=== PATIENT | female | born 1965 | race Caucasian/White ===

== ENCOUNTER 2020-05-20 20:06 | Inpatient (IN) | payer MEDICAID ==
[~2020-05-20] VITALS: Ht 142.2 cm; Wt 70.0 kg
[~2020-05-20 20:06] MED LIST: CIPR7.5D3 EACH EAR
[2020-05-20] MEDS ORDERED: normal saline 1000ML IV soln IVB ONE (20:55)
[2020-05-20] MEDS ORDERED: magnesium 2GM in 50ml NS 50 ML IV ONE (20:55)
[2020-05-20] MEDS ORDERED: CefTRIAXone 2gm/D5W 50ml 50 ML IV ONE (20:55)
[2020-05-20] MEDS ORDERED: azithromycin/NS 500mg/250ml 250 ML IV ONE (21:00)
[2020-05-20 21:14] LABS: BASOPHILS # (AUTO) 0.1 X10'3 (0-0.2); BASOPHILS % (AUTO) 0.5 % (0-1); EOSINOPHILS % (AUTO) 0.1 % (0-6); HEMATOCRIT 39.8 % (35.0-45.0); LYMPHOCYTES # (AUTO) 1.5 X10'3 (1.1-4.8); MEAN CORPUSCULAR HEMOGLOBIN 29.1 PG (27.0-31.0); MEAN CORPUSCULAR HGB CONC 32.6 g/dL (33.0-36.5); MEAN CORPUSCULAR VOLUME 89.3 FL (78-98); MEAN PLATELET VOLUME 7.2 FL (7.4-10.4); MONOCYTES # (AUTO) 0.6 X10'3 (0-0.9); MONOCYTES % (AUTO) 5.3 % (2-12); NEUTROPHILS # (AUTO) 9.1 X10'3 (1.8-7.7); NEUTROPHILS % (AUTO) 81.1 % (42-75); PLATELET COUNT 404 X10'3 (140-440); RED BLOOD COUNT 4.46 X10'6 (4.20-5.60); RED CELL DISTRIBUTION WIDTH 14.6 % (11.5-14.5); WHITE BLOOD COUNT 11.3 X10'3 (4.5-11.0)
[2020-05-20 21:24] LABS: PARTIAL THROMBOPLASTIN TIME 25 SECONDS (22-32)
[2020-05-20 21:28] LABS: ALANINE AMINOTRANSFERASE 28 U/L (12-78); ALBUMIN 3.8 G/DL (3.4-5.0); ALBUMIN/GLOBULIN RATIO 1.1 (1.1-1.5); ALKALINE PHOSPHATASE 91 IU/L (46-116); ANION GAP 8 (8-16); ASPARTATE AMINO TRANSFERASE 16 U/L (10-37); BILIRUBIN,TOTAL 0.4 MG/DL (0.1-1.0); BLOOD UREA NITROGEN 13 MG/DL (7-18); BUN/CREATININE RATIO 10.2 (6.6-38.0); CALCIUM 8.6 MG/DL (8.5-10.1); CHLORIDE 103 MMOL/L (99-107); CREATININE 1.27 MG/DL (0.40-0.90); GLUCOSE 106 MG/DL (70-104); POTASSIUM 3.7 MMOL/L (3.5-5.1); SODIUM 138 MMOL/L (135-145); TOTAL CARBON DIOXIDE 27.4 MMOL/L (24-32); TOTAL PROTEIN 7.4 G/DL (6.4-8.2); eGFR 44 ML/MIN
[2020-05-20] MEDS ORDERED: ipratropium/albuterol 3ml nebule NEB ONE ×2 (21:40→23:25)
--- NOTE | 2020-05-20 22:07 | NUR ---
checked iv compatability on clinical pharm. mag sulfate and zithromax compatible.
[2020-05-20] MEDS ORDERED: LORazepam 2 mg/ml vial IV ONE (23:10)
[2020-05-20] MEDS ORDERED: metoprolol tartrate 50mg tablet PO ONE ×2 (23:40→23:55)
[2020-05-20] MEDS ORDERED: metoprolol tartrate 25mg tablet PO ONE ×2 (23:45→23:50)
--- NOTE | 2020-05-20 23:52 | NUR ---
pt tried to void for UA she is unable. Pt refused strit cath Rylee DRAPER aware
--- NOTE | 2020-05-21 00:21 | NUR ---
Pt was administered ativan as ordered. Pt is not answering questions appropriately at this time.
[2020-05-21] MEDS ORDERED: potassium CL 10mEq/100ml bag 100 ML IV PRN ×2 (01:40)
[2020-05-21] MEDS ORDERED: potassium Cl 20 mEq SR tablet PO PRN ×2 (01:40)
[2020-05-21] MEDS ORDERED: magnesium 2GM in 50ml NS 50 ML IV PRN (01:40)
[2020-05-21] MEDS ORDERED: acetaminophen 325mg tablet PO PRN (01:40)
[2020-05-21] MEDS ORDERED: magnesium Cl slow-release 64mg tablet PO PRN (01:40)
[2020-05-21] MEDS ORDERED: ondansetron/PF 4mg/2ml inj IV PRN (01:40)
[2020-05-21] MEDS ORDERED: magnesium 4gm in 100ml NS 100 ML IV PRN (01:40)
[2020-05-21] MEDS: normal saline 1000ml 1,000 ML IV SCH ×2 (02:05→08:55)
[2020-05-21] MEDS: levalbuterol 1.25mg/0.5ml nebule IH SCH ×4 (03:08→20:44)
[2020-05-21 03:10] LABS: ABG BASE EXCESS -1.1 mmol/L (-2.0-2.0); ABG HCO3 22.6 mmol/L (22.0-26.0); ABG OXYGEN SATURATION 94.9 % (94-97); ABG PCO2 (T) 35.6 mmHg (32.0-45.0); ABG PO2 (T) 78.5 mmHg (75.0-100.0); ALLEN'S TEST Yes; FCOHb 0.2 % (0.0-3.9); FMetHb 0.1 % (0.0-1.5); FO2Hb 94.6 % (94-97); PATIENT TEMPERATURE 37.7; TOTAL HEMOGLOBIN 12.3 G/dl (12.0-16.0)
--- NOTE | 2020-05-21 07:41 | NUR ---
Patient in room ED 1. I have received report from Travis from ER and had the opportunity to ask questions and assume patient care.
[2020-05-21] MEDS ORDERED: levoFLOXACIN-Levaquin 500mg/D5 100 ML IV SCH (08:00)
[2020-05-21 08:32] VITALS: BP 106/63
[2020-05-21] MEDS: K and/or MAG REPLACEMENT MC SCH ×2 (08:39→20:00)
[2020-05-21] MEDS: heparin, porcine 5000 units/ml vial SQ SCH ×2 (08:55→20:35)
[2020-05-21] MEDS: methylPREDNISolone sod succ/PF 40mg inj. IV SCH ×2 (08:55→20:34)
[2020-05-21 10:00] VITALS: BP 121/57
[2020-05-21 10:13] VITALS: BP 92/57
[2020-05-21] MEDS: benzonatate 100mg capsule PO PRN ×2 (12:24→20:35)
[2020-05-21 17:00] VITALS: BP 107/66
--- NOTE | 2020-05-21 18:30 | NUR ---
Patient in room ORTHO 4020. I have received report from ERIC DIAZ and had the opportunity to ask questions and assume patient care. Addendum: 05/21/20 at 1859 by Sera Tafoya RN Amended: Links added.
--- NOTE | 2020-05-21 18:32 | NUR ---
Problems reprioritized. Patient report given, questions answered & plan of care reviewed with
--- NOTE | 2020-05-21 21:00 | NUR ---
INC OF URINE SKIN CARE DONE COMPLET BED CHANGE DONE.
[2020-05-21 22:00] VITALS: BP 103/70
--- NOTE | 2020-05-21 23:07 | NUR ---
C/O BEING COLD WARM BLANKET GIVEN NO CHANGES AT THIS TIME.
--- NOTE | 2020-05-22 00:33 | NUR ---
pt resting without changes.
[2020-05-22] MEDS: levalbuterol 1.25mg/0.5ml nebule IH SCH ×4 (03:45→20:37)
[2020-05-22 06:00] VITALS: BP 98/60
[2020-05-22 06:28] LABS: BASOPHILS % (AUTO) 0.1 % (0-1); EOSINOPHILS % (AUTO) 0 % (0-6); HEMATOCRIT 32.6 % (35.0-45.0); HEMOGLOBIN 10.6 g/dl (12.0-16.0); LYMPHOCYTES # (AUTO) 0.5 X10'3 (1.1-4.8); LYMPHOCYTES % (AUTO) 2.4 % (21-51); MEAN CORPUSCULAR HGB CONC 32.4 g/dL (33.0-36.5); MEAN CORPUSCULAR VOLUME 89.5 FL (78-98); MEAN PLATELET VOLUME 7.3 FL (7.4-10.4); MONOCYTES # (AUTO) 0.4 X10'3 (0-0.9); MONOCYTES % (AUTO) 1.7 % (2-12); NEUTROPHILS # (AUTO) 21.1 X10'3 (1.8-7.7); NEUTROPHILS % (AUTO) 95.8 % (42-75); PLATELET COUNT 318 X10'3 (140-440); RED BLOOD COUNT 3.64 X10'6 (4.20-5.60); RED CELL DISTRIBUTION WIDTH 14.7 % (11.5-14.5)
[2020-05-22 06:32] LABS: ALBUMIN 2.7 G/DL (3.4-5.0); ANION GAP 7 (8-16); BLOOD UREA NITROGEN 16 MG/DL (7-18); CALCIUM 8.5 MG/DL (8.5-10.1); CHLORIDE 106 MMOL/L (99-107); GLUCOSE 149 MG/DL (70-104); MAGNESIUM 2.3 MG/DL (1.5-2.4); POTASSIUM 3.8 MMOL/L (3.5-5.1); SODIUM 138 MMOL/L (135-145); TOTAL CARBON DIOXIDE 25.1 MMOL/L (24-32); eGFR 58 ML/MIN
--- NOTE | 2020-05-22 06:34 | NUR ---
Problems reprioritized. Patient report given, questions answered & plan of care reviewed with ERIC DIAZ. Addendum: 05/22/20 at 0634 by Sera Tafoya RN Amended: Links added.
--- NOTE | 2020-05-22 06:42 | NUR ---
Patient in room ORTHO 4016. I have received report from EMIR and had the opportunity to ask questions and assume patient care.
[2020-05-22] MEDS: K and/or MAG REPLACEMENT MC SCH ×2 (07:09→19:03)
[2020-05-22] MEDS: benzonatate 100mg capsule PO PRN (08:11)
[2020-05-22] MEDS: heparin, porcine 5000 units/ml vial SQ SCH ×2 (08:12→19:08)
[2020-05-22] MEDS: methylPREDNISolone sod succ/PF 40mg inj. IV SCH ×2 (08:13→19:08)
[2020-05-22 10:00] VITALS: BP 125/88
[2020-05-22] MEDS: pantoprazole 40mg Tablet.DR PO SCH (12:28)
[2020-05-22] MEDS: levoFLOXACIN 250mg tablet PO SCH (12:28)
[2020-05-22] MEDS ORDERED: iohexol 350MG/ML 100ml bottle IV ONE (14:16)
[2020-05-22 18:00] VITALS: BP 133/83
--- NOTE | 2020-05-22 18:16 | NUR ---
Patient in room ORTHO 4020. I have received report from Carl DAIZ and had the opportunity to ask questions and assume patient care.
--- NOTE | 2020-05-22 18:23 | NUR ---
Problems reprioritized. Patient report given, questions answered & plan of care reviewed with Tania.
[2020-05-22] MEDS: lactobacillus rhamnosus 10,000 MMU CELLS/CAPSULE PO SCH (19:08)
--- NOTE | 2020-05-22 19:44 | NUR ---
PAGER ID: [phone] MESSAGE: Tania ext [phone] Ms Stephany in room 4020B would like something for sleep. She takes doxepin HCL 75mg 2 capsules HS at home for sleep. Can I get an order for this? Thank you
[2020-05-22] MEDS ORDERED: temazepam 15mg capsule PO ONE (19:50)
[2020-05-22 22:00] VITALS: BP 111/83
[2020-05-23] MEDS: normal saline 1000ml 1,000 ML IV SCH (01:40)
[2020-05-23] MEDS: levalbuterol 1.25mg/0.5ml nebule IH SCH ×3 (02:36→15:46)
[2020-05-23 06:32] LABS: BASOPHILS % (AUTO) 0.1 % (0-1); EOSINOPHILS % (AUTO) 0 % (0-6); HEMATOCRIT 32.6 % (35.0-45.0); HEMOGLOBIN 10.8 g/dl (12.0-16.0); LYMPHOCYTES # (AUTO) 0.7 X10'3 (1.1-4.8); LYMPHOCYTES % (AUTO) 5.2 % (21-51); MEAN CORPUSCULAR HEMOGLOBIN 29.9 PG (27.0-31.0); MEAN CORPUSCULAR HGB CONC 33.2 g/dL (33.0-36.5); MEAN CORPUSCULAR VOLUME 89.9 FL (78-98); MEAN PLATELET VOLUME 7.6 FL (7.4-10.4); MONOCYTES # (AUTO) 0.5 X10'3 (0-0.9); MONOCYTES % (AUTO) 3.7 % (2-12); NEUTROPHILS # (AUTO) 12.2 X10'3 (1.8-7.7); PLATELET COUNT 338 X10'3 (140-440); RED BLOOD COUNT 3.63 X10'6 (4.20-5.60); RED CELL DISTRIBUTION WIDTH 14.4 % (11.5-14.5); WHITE BLOOD COUNT 13.5 X10'3 (4.5-11.0)
--- NOTE | 2020-05-23 06:42 | NUR ---
Problems reprioritized. Patient report given, questions answered & plan of care reviewed with Casandra DIAZ.
[2020-05-23 06:54] LABS: ALBUMIN 2.9 G/DL (3.4-5.0); ANION GAP 13 (8-16); BLOOD UREA NITROGEN 16 MG/DL (7-18); BUN/CREATININE RATIO 16.7 (6.6-38.0); CALCIUM 8.4 MG/DL (8.5-10.1); CHLORIDE 104 MMOL/L (99-107); CREATININE 0.96 MG/DL (0.40-0.90); GLUCOSE 116 MG/DL (70-104); MAGNESIUM 2.3 MG/DL (1.5-2.4); POTASSIUM 3.8 MMOL/L (3.5-5.1); SODIUM 141 MMOL/L (135-145); TOTAL CARBON DIOXIDE 24.3 MMOL/L (24-32); eGFR 61 ML/MIN
[2020-05-23 07:42] VITALS: BP 126/88
[2020-05-23] MEDS: heparin, porcine 5000 units/ml vial SQ SCH (08:00)
[2020-05-23] MEDS: K and/or MAG REPLACEMENT MC SCH (08:00)
[2020-05-23] MEDS: pantoprazole 40mg Tablet.DR PO SCH (09:14)
[2020-05-23] MEDS: lactobacillus rhamnosus 10,000 MMU CELLS/CAPSULE PO SCH (09:14)
[2020-05-23] MEDS: methylPREDNISolone sod succ/PF 40mg inj. IV SCH (09:14)
[2020-05-23 11:00] VITALS: BP 139/81
[2020-05-23] MEDS: levoFLOXACIN 250mg tablet PO SCH (12:33)
--- NOTE | 2020-05-23 14:04 | NUR ---
PAGER ID: [phone] MESSAGE: [id number] Stephany 94% RA and ambulating 92% RA. NO Go for home O2. Casandra [phone]
--- NOTE | 2020-05-23 15:00 | NUR ---
O2 Sat at rest on room air:_94__% If below 89%: Recovery O2 Sat at rest on ___LPM:___%:___% via (mask/nasal cannula, etc..) No further documentation is necessary. If O2 Sat did not drop below 89% on room air,ambulate patient on room air. O2 Sat while ambulating on room air:___% Recovery O2 Sat while ambulating on ___LPM:___% No further documentation is necessary. If patient does not drop below 89% while ambulating, he/she does not qualify for home O2.
[2020-05-23] MEDS ORDERED: ALBU8HFA PO (16:57)
[2020-05-23] MEDS ORDERED: PRED10TA23 PO (16:57)
[2020-05-23] MEDS ORDERED: LEVO500T89 PO (16:57)
[2020-05-23 18:00] VITALS: BP 139/81
--- NOTE | 2020-05-23 18:30 | NUR ---
Patient in room ORTHO 4020. I have received report from Casandra DIAZ and had the opportunity to ask questions and assume patient care. Addendum: 05/23/20 at 2103 by Ana Cristina Tran RN Reported that patient is to be discharged this evening, all paperwork printed out, patient just needs to be informed.
--- NOTE | 2020-05-23 19:30 | NUR ---
Patient left via w/c to lobby with all her belongings to private vehicle where boyfriend awaiting. Patient informed that the prescriptions were left on a voice mail message system at [facility], and for patient to follow up tomorrow.
== END 2020-05-23 19:23 | disposition home or self-care (01) | DRG 140 ==
LOC: ER 20:06 → UNDOADMIN 05-21 00:09 → ED HOLD 05-21 00:09 → ORTHO 4S 05-21 07:53 → ED HOLD 05-21 07:53
PROVIDERS: ADMIT Internal Medicine; ATTEND Internal Medicine
PROC: B32T1ZZ Computerized Tomography (CT Scan) of Left Pulmonary Artery using Low Osmolar Contrast (ICD-10-PCS; principal; 2020-05-22)
PROC: B3201ZZ Computerized Tomography (CT Scan) of Thoracic Aorta using Low Osmolar Contrast (ICD-10-PCS; 2020-05-22)
PROC: B32S1ZZ Computerized Tomography (CT Scan) of Right Pulmonary Artery using Low Osmolar Contrast (ICD-10-PCS; 2020-05-22)
DX: J44.1 Chronic obstructive pulmonary disease with (acute) exacerbation (principal); G89.29 Other chronic pain; M54.9 Dorsalgia, unspecified; J45.901 Unspecified asthma with (acute) exacerbation; M79.7 Fibromyalgia; J96.00 Acute respiratory failure, unspecified whether with hypoxia or hypercapnia; J20.9 Acute bronchitis, unspecified; J44.0 Chronic obstructive pulmonary disease with (acute) lower respiratory infection; Z20.828 Contact with and (suspected) exposure to other viral communicable diseases; F31.9 Bipolar disorder, unspecified; Z90.710 Acquired absence of both cervix and uterus; Z88.8 Allergy status to other drugs, medicaments and biological substances; Z87.891 Personal history of nicotine dependence
CPT/HCPCS: 36415; 36600; 71275; 80048; 80053; 82803; 83605; 83735; 83880; 84145; 84484; 85018; 85025; 85610; 85730; 87040; 87070; 87081; 87635; 93005; 93306; 93308; 94640; 94760; 96365; 96368; 97110; 97116; 97161; 97530; 97535; 99285; G0378; J0456; J0696; J1644; J1956; J2060; J2920; J3475; J7030; J7614; Q9967

== ENCOUNTER 2020-10-14 23:54 | Emergency (ER) | payer MEDICAID ==
[~2020-10-14] VITALS: Ht 142.2 cm; Wt 68.6 kg
[2020-10-15] MEDS ORDERED: ondansetron 4mg rapidly disintigrating tab PO ONE (02:10)
[2020-10-15] MEDS ORDERED: meclizine 12.5mg tablet PO ONE (02:10)
--- NOTE | 2020-10-15 02:17 | NUR ---
PT UP WITH STAND BY ASSISTANCE TO USE BSC TO URINATE
[2020-10-15] MEDS ORDERED: ONDA4TAB6 PO (02:42)
[2020-10-15] MEDS ORDERED: MECL-159 PO (02:42)
[2020-10-15 03:07] VITALS: BP 156/98
== END 2020-10-15 03:05 | disposition home or self-care (01) ==
LOC: ER 23:55
DX: R42 Dizziness and giddiness (principal); H92.01 Otalgia, right ear; J45.909 Unspecified asthma, uncomplicated; G89.29 Other chronic pain; F31.9 Bipolar disorder, unspecified; F17.200 Nicotine dependence, unspecified, uncomplicated; Z90.710 Acquired absence of both cervix and uterus; Z88.8 Allergy status to other drugs, medicaments and biological substances; Z79.2 Long term (current) use of antibiotics
CPT/HCPCS: 99284; J8597

== ENCOUNTER 2020-10-16 09:35 | Emergency (ER) | payer MEDICAID ==
[~2020-10-16] VITALS: Ht 142.2 cm; Wt 67.0 kg
[~2020-10-16 09:35] MED LIST changes: +MECL-159 PO; +ONDA4TAB6 PO
[2020-10-16 10:32] LABS: LYMPHOCYTES # (AUTO) 2.4 X10'3 (1.1-4.8); MEAN CORPUSCULAR HGB CONC 31.9 g/dL (33.0-36.5); MEAN CORPUSCULAR VOLUME 80.7 FL (78-98)
[2020-10-16 10:34] LABS: BASOPHILS # (AUTO) 0.1 X10'3 (0-0.2); BASOPHILS % (AUTO) 1.1 % (0-1); EOSINOPHILS # (AUTO) 0.1 X10'3 (0-0.9); EOSINOPHILS % (AUTO) 0.5 % (0-6); HEMATOCRIT 33.9 % (35.0-45.0); HEMOGLOBIN 10.8 g/dl (12.0-16.0); LYMPHOCYTES % (AUTO) 22.3 % (21-51); MEAN CORPUSCULAR HEMOGLOBIN 25.7 PG (27.0-31.0); MEAN PLATELET VOLUME 7.1 FL (7.4-10.4); MONOCYTES # (AUTO) 1.2 X10'3 (0-0.9); NEUTROPHILS # (AUTO) 7.1 X10'3 (1.8-7.7); NEUTROPHILS % (AUTO) 65.1 % (42-75); PLATELET COUNT 493 X10'3 (140-440); RED CELL DISTRIBUTION WIDTH 16.1 % (11.5-14.5); WHITE BLOOD COUNT 10.9 X10'3 (4.5-11.0)
[2020-10-16 10:41] LABS: ALANINE AMINOTRANSFERASE 27 U/L (12-78); ALBUMIN 3.3 G/DL (3.4-5.0); ALBUMIN/GLOBULIN RATIO 0.9 (1.1-1.5); ALKALINE PHOSPHATASE 116 IU/L (46-116); ANION GAP 10 (8-16); ASPARTATE AMINO TRANSFERASE 16 U/L (10-37); BILIRUBIN,TOTAL 0.3 MG/DL (0.1-1.0); BLOOD UREA NITROGEN 13 MG/DL (7-18); BUN/CREATININE RATIO 10.7 (6.6-38.0); CALCIUM 8.7 MG/DL (8.5-10.1); CHLORIDE 104 MMOL/L (99-107); CREATININE 1.22 MG/DL (0.40-0.90); GLUCOSE 109 MG/DL (70-104); POTASSIUM 3.6 MMOL/L (3.5-5.1); SODIUM 141 MMOL/L (135-145); TOTAL CARBON DIOXIDE 26.8 MMOL/L (24-32); TOTAL PROTEIN 6.8 G/DL (6.4-8.2); eGFR 46 ML/MIN
[2020-10-16 10:56] LABS: ANISOCYTOSIS 1+; HYPOCHROMASIA 1+; MICROCYTOSIS 1+; PLATELET ESTIMATE INCREASED; POIKILOCYTOSIS FEW
[2020-10-16] MEDS ORDERED: iohexol 350 MG/ML 50ML vial IV ONE (10:58)
[2020-10-16 13:49] VITALS: BP 146/103
== END 2020-10-16 13:51 | disposition home or self-care (01) ==
LOC: ER 09:35
DX: R07.89 Other chest pain (principal); Z20.822 Contact with and (suspected) exposure to COVID-19; R06.00 Dyspnea, unspecified; R61 Generalized hyperhidrosis; E78.00 Pure hypercholesterolemia, unspecified; J45.909 Unspecified asthma, uncomplicated; G89.29 Other chronic pain; M79.7 Fibromyalgia; Z90.710 Acquired absence of both cervix and uterus; Z87.891 Personal history of nicotine dependence; Z79.2 Long term (current) use of antibiotics; Z79.899 Other long term (current) drug therapy
CPT/HCPCS: 36415; 71045; 71275; 80053; 83880; 84484; 85008; 85025; 85379; 87426; 93005; 99285; Q9967; 93308

== ENCOUNTER 2020-10-28 09:50 | Inpatient (IN) | payer MEDICAID ==
[~2020-10-28] VITALS: Ht 142.2 cm; Wt 77.3 kg
[2020-10-28 11:18] LABS: BASOPHILS # (AUTO) 0.1 X10'3 (0-0.2); BASOPHILS % (AUTO) 1.4 % (0-1); EOSINOPHILS # (AUTO) 0.1 X10'3 (0-0.9); HEMATOCRIT 35.7 % (35.0-45.0); HEMOGLOBIN 11.1 g/dl (12.0-16.0); LYMPHOCYTES # (AUTO) 2.1 X10'3 (1.1-4.8); LYMPHOCYTES % (AUTO) 22.4 % (21-51); MEAN CORPUSCULAR HEMOGLOBIN 25.2 PG (27.0-31.0); MEAN CORPUSCULAR HGB CONC 31.1 g/dL (33.0-36.5); MEAN CORPUSCULAR VOLUME 81.1 FL (78-98); MEAN PLATELET VOLUME 6.4 FL (7.4-10.4); MONOCYTES # (AUTO) 0.8 X10'3 (0-0.9); MONOCYTES % (AUTO) 8.7 % (2-12); NEUTROPHILS # (AUTO) 6.2 X10'3 (1.8-7.7); NEUTROPHILS % (AUTO) 66.5 % (42-75); PLATELET COUNT 506 X10'3 (140-440); RED CELL DISTRIBUTION WIDTH 16.3 % (11.5-14.5); WHITE BLOOD COUNT 9.3 X10'3 (4.5-11.0)
[2020-10-28] MEDS ORDERED: iohexol 350MG/ML 100ml bottle IV ONE (11:18)
[2020-10-28 11:22] LABS: CLARITY,URINE CLEAR (Clear); COLOR,URINE STRAW (Yellow); GLUCOSE, URINE NEGATIVE (Neg); KETONES,URINE NEGATIVE (Neg); LEUKOCYTE ESTERASE ,URINE NEGATIVE (Neg); NITRITES, URINE NEGATIVE (Neg); OCCULT BLOOD,URINE NEGATIVE (Neg); PROTEIN,URINE NEGATIVE (Neg); UROBILINOGEN,URINE 0.2 E.U/dL (0.2-1.0)
[2020-10-28] MEDS ORDERED: normal saline 1000ML IV soln IVB ONE (11:25)
[2020-10-28 11:27] LABS: URINE AMPHETAMINE SCREEN NEGATIVE (Neg); URINE BARBITUATE SCREEN NEGATIVE (Neg); URINE BENZODIAZEPINES SCREEN NEGATIVE (Neg); URINE CANNABINOID SCREEN NEGATIVE (Neg); URINE COCAINE SCREEN NEGATIVE (Neg); URINE METHADONE SCREEN NEGATIVE (Neg); URINE OPIATE SCREEN NEGATIVE (Neg); URINE PHENCYCLIDINE SCREEN NEGATIVE (Neg)
[2020-10-28 11:34] LABS: UA COLLECTION TYPE NON-SPECIFIED
[2020-10-28 12:02] LABS: ALANINE AMINOTRANSFERASE 33 U/L (12-78); ALBUMIN 3.5 G/DL (3.4-5.0); ALBUMIN/GLOBULIN RATIO 0.9 (1.1-1.5); ALKALINE PHOSPHATASE 133 IU/L (46-116); ANION GAP 9 (8-16); ASPARTATE AMINO TRANSFERASE 13 U/L (10-37); BILIRUBIN,TOTAL 0.3 MG/DL (0.1-1.0); BLOOD UREA NITROGEN 12 MG/DL (7-18); BUN/CREATININE RATIO 9.6 (6.6-38.0); CALCIUM 8.8 MG/DL (8.5-10.1); CHLORIDE 105 MMOL/L (99-107); CREATININE 1.25 MG/DL (0.40-0.90); ETHANOL < 0.010 GM/DL (0.0-0.010); GLUCOSE 101 MG/DL (70-104); SODIUM 140 MMOL/L (135-145); TOTAL CARBON DIOXIDE 25.8 MMOL/L (24-32); TOTAL PROTEIN 7.6 G/DL (6.4-8.2); eGFR 45 ML/MIN
[2020-10-28] MEDS ORDERED: ALEN70TA80 PO (13:24)
[2020-10-28] MEDS ORDERED: MONT10TA32 PO (13:24)
[2020-10-28] MEDS ORDERED: TRIA15CR61 TOP (13:24)
[2020-10-28] MEDS ORDERED: BACL10TA7 PO (13:24)
[2020-10-28] MEDS ORDERED: TIOT4MIS2 INH (13:24)
[2020-10-28] MEDS ORDERED: NABU-136 PO (13:24)
[2020-10-28] MEDS ORDERED: CETI10TA14 PO (13:24)
[2020-10-28] MEDS ORDERED: OFLO5DRO5 TOP (13:24)
[2020-10-28] MEDS ORDERED: HYDR50TA65 PO (13:24)
[2020-10-28] MEDS ORDERED: BUDE10.26 PO (13:24)
[2020-10-28] MEDS ORDERED: OMEP-50 PO (13:24)
[2020-10-28] MEDS ORDERED: SIMV-42 PO (13:24)
[2020-10-28] MEDS ORDERED: ALBU17AE26 PO (13:24)
[2020-10-28] MEDS ORDERED: GABA300T25 PO ×2 (13:24)
[2020-10-28] MEDS ORDERED: FLUT15.87 TOP (13:24)
[2020-10-28] MEDS ORDERED: DOXE75CA3 PO (13:24)
[2020-10-28] MEDS ORDERED: acetaminophen 325mg tablet PO PRN (13:25)
[2020-10-28] MEDS ORDERED: ondansetron/PF 4mg/2ml inj IV PRN (13:25)
[2020-10-28] MEDS ORDERED: magnesium hydroxide 30ml (MOM) UD suspension PO PRN (13:25)
[2020-10-28] MEDS ORDERED: aspirin 325mg tablet PO ONE (13:25)
[2020-10-28] MEDS ORDERED: MECL-159 PO (13:26)
[2020-10-28] MEDS: normal saline 1000ml 1,000 ML IV SCH ×2 (13:36→23:59)
[2020-10-28 14:58] LABS: CHOL/HDL RATIO 2.4 (0.00-4.99); CHOLESTEROL 245 MG/DL (0-200); HDL CHOLESTEROL 101 MG/DL (35-60); LDL CHOLESTEROL 118 MG/DL (50-100); TRIGLYCERIDES 70 MG/DL (20-135)
[2020-10-28] MEDS ORDERED: fluticasone nasal spray 16GM bottle NS PRN (15:00)
[2020-10-28] MEDS ORDERED: non-formulary drug (Alendronate Sodium 1 TAB) PO SCH (15:00)
[2020-10-28] MEDS ORDERED: GABA600T PO (15:10)
[2020-10-28] MEDS ORDERED: GABA300C PO (15:10)
[2020-10-28] MEDS ORDERED: albuterol 2.5 MG/3 ML nebule NEB PRN (15:10)
[2020-10-28] MEDS ORDERED: hydrOXYzine 25 MG tablet PO PRN (15:15)
[2020-10-28] MEDS ORDERED: meclizine 12.5mg tablet PO PRN (15:20)
--- NOTE | 2020-10-28 16:40 | NUR ---
Received pt from ED via bello. Pt reports continued dizzyness. Fall band and Tabs placed for safety. Advised Pt to call for assist with toileting, pt verbalizes understanding. Oriented to room and POC. bed low side rails up x2, call light in reach with return demo.
[2020-10-28 18:00] VITALS: BP 145/89
--- NOTE | 2020-10-28 18:47 | NUR ---
Patient in room ORTHO 4015. I have received report from Yaquelin DIAZ and had the opportunity to ask questions and assume patient care.
--- NOTE | 2020-10-28 18:56 | NUR ---
Problems reprioritized. Patient report given, questions answered & plan of care reviewed with EMILY Miramontes.
[2020-10-28] MEDS: ipratropium/albuterol 3ml nebule IH SCH (20:10)
[2020-10-28] MEDS: budesonide 0.5mg/2ml UD nebule IH SCH (20:10)
[2020-10-28] MEDS: doxepin 25mg capsule PO SCH (20:53)
[2020-10-28] MEDS: atorvastatin 10mg tablet PO SCH (20:53)
[2020-10-28] MEDS: ofloxacin 0.3% 5ml otic drops EACH EAR SCH (20:55)
[2020-10-28] MEDS: heparin, porcine 5000 units/ml vial SQ SCH (20:55)
[2020-10-28] MEDS ORDERED: gabapentin 300mg capsule PO SCH (21:00)
[2020-10-28 22:00] VITALS: BP 103/57
[2020-10-29] MEDS: ipratropium/albuterol 3ml nebule IH SCH ×4 (02:07→20:12)
[2020-10-29 06:00] VITALS: BP 97/69
--- NOTE | 2020-10-29 06:00 | NUR ---
Problems reprioritized. Patient report given, questions answered & plan of care reviewed with Anita DIAZ.
--- NOTE | 2020-10-29 06:34 | NUR ---
Patient in room ORTHO 4015. I have received report from jack rosario and had the opportunity to ask questions and assume patient care.
[2020-10-29] MEDS: cetirizine 10mg tablet PO SCH (07:31)
[2020-10-29] MEDS: montelukast 10mg tablet PO SCH (07:31)
[2020-10-29] MEDS: pantoprazole 40mg Tablet.DR PO SCH (07:31)
[2020-10-29] MEDS: aspirin 81mg tablet.DR PO SCH (07:31)
[2020-10-29] MEDS: heparin, porcine 5000 units/ml vial SQ SCH ×2 (07:31→19:57)
[2020-10-29] MEDS: normal saline 1000ml 1,000 ML IV SCH ×2 (07:32→19:57)
[2020-10-29] MEDS: ofloxacin 0.3% 5ml otic drops EACH EAR SCH ×2 (07:37→20:00)
[2020-10-29] MEDS: budesonide 0.5mg/2ml UD nebule IH SCH ×2 (08:00→20:13)
[2020-10-29] MEDS ORDERED: non-formulary drug (Tiotropium Bromide (Spiriva Respimat) 2 PUFFS) INH SCH (08:00)
[2020-10-29] MEDS ORDERED: gabapentin 300mg capsule PO SCH (08:00)
[2020-10-29] MEDS ORDERED: pneumococcal 23-VAL P-sac vacc 25 mcg/0.5ml vial IMVAC ONE (10:00)
[2020-10-29 11:00] VITALS: BP 110/76
--- NOTE | 2020-10-29 18:10 | NUR ---
Patient in room ORTHO 4015. I have received report from EMILY Howard and had the opportunity to ask questions and assume patient care.
--- NOTE | 2020-10-29 18:17 | NUR ---
Problems reprioritized. Patient report given, questions answered & plan of care reviewed with mervin rosario.
--- NOTE | 2020-10-29 18:30 | NUR ---
Patient in room ORTHO 4015. I have received report from EMILY Howard and had the opportunity to ask questions and assume patient care.
[2020-10-29 19:10] VITALS: BP 120/59
[2020-10-29] MEDS: doxepin 25mg capsule PO SCH (19:54)
[2020-10-29] MEDS: atorvastatin 10mg tablet PO SCH (19:55)
[2020-10-29] MEDS: gabapentin 300mg capsule PO SCH (19:55)
[2020-10-29] MEDS: mag hydrox/Alum hydrox/simeth 30ml oral suspension PO PRN (19:56)
[2020-10-29 22:00] VITALS: BP 94/59
[2020-10-29] MEDS: acetaminophen 325mg tablet PO PRN (23:15)
[2020-10-30] MEDS: ipratropium/albuterol 3ml nebule IH SCH ×4 (02:46→20:36)
[2020-10-30] MEDS: normal saline 1000ml 1,000 ML IV SCH ×2 (05:02→16:22)
[2020-10-30 05:38] LABS: ALBUMIN 2.6 G/DL (3.4-5.0); ANION GAP 6 (8-16); BLOOD UREA NITROGEN 19 MG/DL (7-18); BUN/CREATININE RATIO 16.1 (6.6-38.0); CALCIUM 7.8 MG/DL (8.5-10.1); CHLORIDE 109 MMOL/L (99-107); CREATININE 1.18 MG/DL (0.40-0.90); GLUCOSE 91 MG/DL (70-104); POTASSIUM 4.2 MMOL/L (3.5-5.1); SODIUM 142 MMOL/L (135-145); TOTAL CARBON DIOXIDE 26.7 MMOL/L (24-32); eGFR 48 ML/MIN
[2020-10-30 06:00] VITALS: BP 105/57
--- NOTE | 2020-10-30 06:11 | NUR ---
Problems reprioritized. Patient report given, questions answered & plan of care reviewed with EMILY Larson.
--- NOTE | 2020-10-30 06:40 | NUR ---
Patient in room ORTHO 4015. I have received report from Debbi DIAZ and had the opportunity to ask questions and assume patient care.
[2020-10-30] MEDS: budesonide 0.5mg/2ml UD nebule IH SCH ×2 (08:03→20:36)
[2020-10-30] MEDS: cetirizine 10mg tablet PO SCH (08:17)
[2020-10-30] MEDS: aspirin 81mg tablet.DR PO SCH (08:17)
[2020-10-30] MEDS: pantoprazole 40mg Tablet.DR PO SCH (08:17)
[2020-10-30] MEDS: montelukast 10mg tablet PO SCH (08:18)
[2020-10-30] MEDS: gabapentin 300mg capsule PO SCH ×2 (08:18→21:36)
[2020-10-30] MEDS: ofloxacin 0.3% 5ml otic drops EACH EAR SCH ×2 (08:20→21:36)
[2020-10-30] MEDS: heparin, porcine 5000 units/ml vial SQ SCH ×2 (08:23→21:37)
[2020-10-30 10:00] VITALS: BP 102/57
[2020-10-30] MEDS ORDERED: LIDOcaine 1%/PF 5ML 10 MG/ML VIAL ONE (10:10)
[2020-10-30 12:42] LABS: GLUCOSE,CSF 59 MG/DL (40-75); TOTAL PROTEIN,CSF 40 MG/DL (15-45)
[2020-10-30 12:47] LABS: APPEARANCE,CSF HAZY; CSF RBC 2000 /CU MM (0); CSF SUPERNATANT COLOR PINK; CSF VOLUME 9 ML; CSF WBC CT 3 /CU MM (0-5); TUBE# COUNTED 4
[2020-10-30 18:00] VITALS: BP 108/65
--- NOTE | 2020-10-30 19:00 | NUR ---
Patient in room ORTHO 4015. I have received report from Neo DIAZ and had the opportunity to ask questions and assume patient care.
--- NOTE | 2020-10-30 19:07 | NUR ---
Problems reprioritized. Patient report given, questions answered & plan of care reviewed with Ana Cristina DIAZ.
[2020-10-30] MEDS: atorvastatin 10mg tablet PO SCH (21:37)
[2020-10-30] MEDS: doxepin 25mg capsule PO SCH (21:38)
[2020-10-30] MEDS: acetaminophen 325mg tablet PO PRN (21:39)
[2020-10-30 22:30] VITALS: BP 120/72
[2020-10-31] MEDS: normal saline 1000ml 1,000 ML IV SCH ×3 (01:25→17:35)
[2020-10-31] MEDS: ipratropium/albuterol 3ml nebule IH SCH ×4 (02:37→20:20)
[2020-10-31 06:00] VITALS: BP 106/73
--- NOTE | 2020-10-31 06:30 | NUR ---
Patient in room ORTHO 4015. I have received report from Ana Cristina DIAZ and had the opportunity to ask questions and assume patient care.
[2020-10-31] MEDS: budesonide 0.5mg/2ml UD nebule IH SCH ×2 (08:18→20:20)
[2020-10-31] MEDS ORDERED: levetiracetam 250mg tablet PO ONE (08:40)
[2020-10-31] MEDS: aspirin 81mg tablet.DR PO SCH (08:50)
[2020-10-31] MEDS: gabapentin 300mg capsule PO SCH ×2 (08:50→20:12)
[2020-10-31] MEDS: montelukast 10mg tablet PO SCH (08:50)
[2020-10-31] MEDS: cetirizine 10mg tablet PO SCH (08:50)
[2020-10-31] MEDS: acetaminophen 325mg tablet PO PRN ×2 (08:51→16:45)
[2020-10-31] MEDS: pantoprazole 40mg Tablet.DR PO SCH (09:05)
[2020-10-31] MEDS: ofloxacin 0.3% 5ml otic drops EACH EAR SCH ×2 (09:12→20:00)
[2020-10-31] MEDS: heparin, porcine 5000 units/ml vial SQ SCH ×2 (09:12→20:10)
[2020-10-31 10:00] VITALS: BP 117/69
[2020-10-31] MEDS: mag hydrox/Alum hydrox/simeth 30ml oral suspension PO PRN (14:05)
[2020-10-31 18:00] VITALS: BP 91/67
--- NOTE | 2020-10-31 18:13 | NUR ---
report rec'd from marlene Larson.
--- NOTE | 2020-10-31 18:38 | NUR ---
Problems reprioritized. Patient report given, questions answered & plan of care reviewed with Windy DIAZ.
--- NOTE | 2020-10-31 18:51 | NUR ---
Student documentation: I have reviewed and agree with all interventions, assessments performed and documented by JAMSHID DIAZ.
[2020-10-31] MEDS: carVEDilol 3.125mg tablet PO SCH (20:00)
[2020-10-31] MEDS: atorvastatin 10mg tablet PO SCH (20:09)
[2020-10-31] MEDS: doxepin 25mg capsule PO SCH (20:09)
[2020-10-31] MEDS: levetiracetam 250mg tablet PO SCH (20:09)
[2020-10-31 22:00] VITALS: BP 106/59
[2020-11-01] MEDS: ipratropium/albuterol 3ml nebule IH SCH ×3 (02:13→14:56)
--- NOTE | 2020-11-01 06:20 | NUR ---
REPORT GIVEN TO SANDRA QUIROGA.
--- NOTE | 2020-11-01 06:24 | NUR ---
Patient in room ORTHO 4015. I have received report from Windy DIAZ and had the opportunity to ask questions and assume patient care.
[2020-11-01 07:12] VITALS: BP 100/58
[2020-11-01] MEDS: normal saline 1000ml 1,000 ML IV SCH ×2 (07:48→17:25)
[2020-11-01] MEDS: ofloxacin 0.3% 5ml otic drops EACH EAR SCH (08:00)
[2020-11-01] MEDS: gabapentin 300mg capsule PO SCH (08:03)
[2020-11-01] MEDS: cetirizine 10mg tablet PO SCH (08:03)
[2020-11-01] MEDS: aspirin 81mg tablet.DR PO SCH (08:03)
[2020-11-01] MEDS: levetiracetam 250mg tablet PO SCH (08:04)
[2020-11-01] MEDS: montelukast 10mg tablet PO SCH (08:04)
[2020-11-01] MEDS: carVEDilol 3.125mg tablet PO SCH (08:04)
[2020-11-01] MEDS: pantoprazole 40mg Tablet.DR PO SCH (08:04)
[2020-11-01] MEDS: heparin, porcine 5000 units/ml vial SQ SCH (08:05)
[2020-11-01] MEDS: budesonide 0.5mg/2ml UD nebule IH SCH (08:24)
[2020-11-01 12:12] VITALS: BP 109/77
--- NOTE | 2020-11-01 15:20 | NUR ---
Initial: Pt admit diagnosis vertigo, YOIN improving, seizure disorder, with speech impairment per MD note. Pt is edentulous, per EMR. PO intake ~75% on a soft bite sized/ chop all diet per [employer] REP recs; meeting needs. Last BM 10/31 with PRN bowel care available. No nutrition concerns at this time. Will continue to monitor. Recommend: 1) Continue on soft bite sized/chop all diet 2) PRN bowel care 3) Scaled wt this admit. Addendum: 11/01/20 at [address] Amended: Links added. Addendum: 11/01/20 at [address] CHRIS thomas/ leadership program intern note.
--- NOTE | 2020-11-01 16:11 | NUR ---
Called report to Tania at [facility].
--- NOTE | 2020-11-01 16:14 | NUR ---
MESSAGE: [phone] Stephany, Need DC order so i can send her to [facility] at 1700, thanks! Carmella ext [phone]
--- NOTE | 2020-11-01 17:47 | NUR ---
Patient sent to [facility] via wheelchair with santiago cargo. IV dcd cannula intact with no signs or symptoms of phlebitis. Patient was sent with personal belongings.
== END 2020-11-01 17:40 | DRG 53 ==
LOC: ER 09:50 → ED HOLD 13:21 → OBSVTOIN 13:21 → ORTHO 4S 16:45
PROVIDERS: ADMIT Family Medicine; ATTEND Family Medicine
PROC: B3251ZZ Computerized Tomography (CT Scan) of Bilateral Common Carotid Arteries using Low Osmolar Contrast (ICD-10-PCS; 2020-10-28)
PROC: B32G1ZZ Computerized Tomography (CT Scan) of Bilateral Vertebral Arteries using Low Osmolar Contrast (ICD-10-PCS; 2020-10-28)
PROC: B3281ZZ Computerized Tomography (CT Scan) of Bilateral Internal Carotid Arteries using Low Osmolar Contrast (ICD-10-PCS; 2020-10-28)
PROC: 3E0234Z Introduction of Serum, Toxoid and Vaccine into Muscle, Percutaneous Approach (ICD-10-PCS; 2020-10-29)
PROC: 4A10X4Z Monitoring of Central Nervous Electrical Activity, External Approach (ICD-10-PCS; principal; 2020-10-30)
PROC: 009U3ZZ Drainage of Spinal Canal, Percutaneous Approach (ICD-10-PCS; 2020-10-30)
PROC: B01B1ZZ Fluoroscopy of Spinal Cord using Low Osmolar Contrast (ICD-10-PCS; 2020-10-30)
DX: G40.909 Epilepsy, unspecified, not intractable, without status epilepticus (principal); G89.29 Other chronic pain; J45.909 Unspecified asthma, uncomplicated; M79.7 Fibromyalgia; M81.0 Age-related osteoporosis without current pathological fracture; R29.6 Repeated falls; N17.0 Acute kidney failure with tubular necrosis; K21.9 Gastro-esophageal reflux disease without esophagitis; M48.54XA Collapsed vertebra, not elsewhere classified, thoracic region, initial encounter for fracture; M54.2 Cervicalgia; M54.9 Dorsalgia, unspecified; R27.0 Ataxia, unspecified; R94.01 Abnormal electroencephalogram [EEG]; Z90.710 Acquired absence of both cervix and uterus; Z23 Encounter for immunization; Z88.8 Allergy status to other drugs, medicaments and biological substances; Z79.899 Other long term (current) drug therapy
CPT/HCPCS: 36415; 62328; 70450; 70496; 70498; 70544; 70553; 72146; 72148; 80048; 80053; 80061; 80305; 80320; 81003; 82040; 82042; 82607; 82784; 82945; 83916; 84157; 85025; 86617; 86788; 86789; 87081; 87529; 89051; 90732; 92508; 92616; 93005; 93306; 93308; 93880; 94640; 94760; 95816; 97110; 97116; 97161; 97530; 99285; G0378; J1644; J7030; J7626; Q0177; Q9967

== ENCOUNTER 2021-03-20 07:47 | Emergency (ER) | payer MEDICAID ==
[~2021-03-20] VITALS: Ht 142.2 cm; Wt 82.5 kg
[~2021-03-20 07:47] MED LIST changes: +ALBU17AE26 PO; +ALEN70TA80 PO; +BACL10TA7 PO; +BUDE10.26 PO; +CETI10TA14 PO; -CIPR7.5D3 EACH EAR; +DOXE75CA3 PO; +FLUT15.87 TOP; +GABA300C PO; +GABA600T PO; +HYDR50TA65 PO; +MONT10TA32 PO; +NABU-141 PO; +OFLO5DRO5 TOP; +OMEP-50 PO; -ONDA4TAB6 PO; +SIMV-42 PO; +TIOT4MIS2 INH; +TRIA15CR61 TOP
[2021-03-20 07:50] VITALS: BP 142/89
[2021-03-20] MEDS ORDERED: ketorolac tromethamine 15mg/ml inj. IM ONE (10:10)
[2021-03-20] MEDS ORDERED: ketorolac trometh. 30mg/ml inj. IM ONE (10:10)
[2021-03-20] MEDS ORDERED: acetaminophen 325mg tablet PO ONE (10:10)
--- NOTE | 2021-03-20 10:45 | NUR ---
pt was seen and treated by radha heller.
== END 2021-03-20 10:45 | disposition home or self-care (01) ==
LOC: ER 07:47
DX: M53.3 Sacrococcygeal disorders, not elsewhere classified (principal); M54.5 Low back pain; M81.0 Age-related osteoporosis without current pathological fracture; G40.909 Epilepsy, unspecified, not intractable, without status epilepticus; G89.29 Other chronic pain; J45.909 Unspecified asthma, uncomplicated; M79.7 Fibromyalgia; Z90.710 Acquired absence of both cervix and uterus; Z88.8 Allergy status to other drugs, medicaments and biological substances; Z79.2 Long term (current) use of antibiotics; Z79.899 Other long term (current) drug therapy
CPT/HCPCS: 72220; 96372; 99283; J1885

== ENCOUNTER 2021-04-22 13:38 | Emergency (ER) | payer MEDICAID ==
[~2021-04-22] VITALS: Ht 142.2 cm; Wt 77.0 kg
[~2021-04-22 13:38] MED LIST changes: +FLUT15.87 INH; -FLUT15.87 TOP
[2021-04-22] MEDS ORDERED: TETanus/Pertussis (Acell)/Diphther VAC/PF (Tdap-Adult) 0.5ml syringe IMVAC ONE (13:55)
[2021-04-22 15:54] VITALS: BP 149/102
[2021-04-22] MEDS ORDERED: HYDROcodone/acetaminophen 10/325mg tab PO ONE (16:00)
[2021-04-22] MEDS ORDERED: HYDR-3965 PO (16:05)
== END 2021-04-22 16:34 | disposition home or self-care (01) ==
LOC: ER 13:39
DX: S52.511A Displaced fracture of right radial styloid process, initial encounter for closed fracture (principal); M25.531 Pain in right wrist; J45.909 Unspecified asthma, uncomplicated; K21.9 Gastro-esophageal reflux disease without esophagitis; G89.29 Other chronic pain; F31.9 Bipolar disorder, unspecified; Z90.710 Acquired absence of both cervix and uterus; Z88.8 Allergy status to other drugs, medicaments and biological substances; Z79.2 Long term (current) use of antibiotics; Z79.899 Other long term (current) drug therapy; Z20.3 Contact with and (suspected) exposure to rabies; W01.0XXA Fall on same level from slipping, tripping and stumbling without subsequent striking against object, initial encounter; Y93.89 Activity, other specified; Y92.89 Other specified places as the place of occurrence of the external cause; Y99.8 Other external cause status
CPT/HCPCS: 29125; 73080; 73110; 90471; 90715; 99284

== ENCOUNTER 2021-04-27 08:12 | Inpatient (IN) | payer MEDICAID ==
[~2021-04-27] VITALS: Ht 142.2 cm; Wt 81.8 kg
[~2021-04-27 08:12] MED LIST changes: +HYDR-3965 PO
[2021-04-27] MEDS ORDERED: ipratropium/albuterol 3ml nebule NEB ONE (09:10)
[2021-04-27] MEDS ORDERED: normal saline 1000ML IV soln IVB ONE ×2 (09:10→10:30)
[2021-04-27] MEDS ORDERED: methylPREDNISolone sod succ 125mg/2ml vial IV ONE (09:10)
[2021-04-27 09:37] LABS: ABG BASE EXCESS -0.2 mmol/L (-2.0-2.0); ABG HCO3 23.3 mmol/L (22.0-26.0); ABG OXYGEN SATURATION 96.4 % (94-97); ABG PCO2 (T) 34.4 mmHg (32.0-45.0); ABG PO2 (T) 81.6 mmHg (75.0-100.0); ALLEN'S TEST POSITIVE; FLOW 2 L/min; FO2Hb 95.4 % (94-97); TOTAL HEMOGLOBIN 13.1 G/dl (12.0-16.0)
[2021-04-27 09:57] LABS: BASOPHILS # (AUTO) 0.1 X10'3 (0-0.2); BASOPHILS % (AUTO) 0.4 % (0-1); EOSINOPHILS # (AUTO) 0.1 X10'3 (0-0.9); EOSINOPHILS % (AUTO) 0.5 % (0-6); HEMATOCRIT 38.6 % (35.0-45.0); HEMOGLOBIN 12.4 g/dl (12.0-16.0); LYMPHOCYTES # (AUTO) 1.7 X10'3 (1.1-4.8); LYMPHOCYTES % (AUTO) 9.9 % (21-51); MEAN CORPUSCULAR HEMOGLOBIN 28.4 PG (27.0-31.0); MEAN CORPUSCULAR HGB CONC 32.1 g/dL (33.0-36.5); MEAN CORPUSCULAR VOLUME 88.5 FL (78-98); MEAN PLATELET VOLUME 6.8 FL (7.4-10.4); MONOCYTES # (AUTO) 1.6 X10'3 (0-0.9); MONOCYTES % (AUTO) 8.8 % (2-12); NEUTROPHILS # (AUTO) 14.3 X10'3 (1.8-7.7); NEUTROPHILS % (AUTO) 80.4 % (42-75); PLATELET COUNT 375 X10'3 (140-440); RED BLOOD COUNT 4.36 X10'6 (4.20-5.60); RED CELL DISTRIBUTION WIDTH 18.1 % (11.5-14.5); WHITE BLOOD COUNT 17.8 X10'3 (4.5-11.0)
[2021-04-27 10:09] LABS: D-DIMER 3.49 MG/L FEU (0-0.50)
[2021-04-27 10:11] LABS: ALANINE AMINOTRANSFERASE 30 U/L (12-78); ALBUMIN 2.5 G/DL (3.4-5.0); ALBUMIN/GLOBULIN RATIO 0.6 (1.1-1.5); ALKALINE PHOSPHATASE 130 IU/L (46-116); ANION GAP 11 (8-16); ASPARTATE AMINO TRANSFERASE 19 U/L (10-37); BILIRUBIN,TOTAL 0.7 MG/DL (0.1-1.0); BLOOD UREA NITROGEN 12 MG/DL (7-18); BUN/CREATININE RATIO 10.3 (6.6-38.0); CALCIUM 7.8 MG/DL (8.5-10.1); CHLORIDE 106 MMOL/L (99-107); CREATININE 1.16 MG/DL (0.40-0.90); GLUCOSE 122 MG/DL (70-104); POTASSIUM 3.8 MMOL/L (3.5-5.1); SODIUM 141 MMOL/L (135-145); TOTAL CARBON DIOXIDE 24.5 MMOL/L (24-32); TOTAL PROTEIN 6.4 G/DL (6.4-8.2); eGFR 49 ML/MIN
[2021-04-27] MEDS ORDERED: azithromycin/NS 500mg/250ml 250 ML IV ONE (10:25)
[2021-04-27] MEDS ORDERED: CefTRIAXone/D5W-Rocephin 1gm 50 ML IV ONE (10:25)
[2021-04-27] MEDS ORDERED: mag hydrox/Alum hydrox/simeth 30ml oral suspension PO PRN (10:40)
[2021-04-27] MEDS ORDERED: acetaminophen 325mg tablet PO PRN (10:40)
[2021-04-27] MEDS ORDERED: magnesium hydroxide 30ml (MOM) UD suspension PO PRN (10:40)
[2021-04-27] MEDS ORDERED: ondansetron/PF 4mg/2ml inj IV PRN (10:40)
[2021-04-27] MEDS: ipratropium/albuterol 3ml nebule NEB SCH ×4 (11:41→23:19)
[2021-04-27] MEDS ORDERED: LAMO100T PO (12:24)
[2021-04-27] MEDS ORDERED: CARV3.122 PO (12:24)
[2021-04-27] MEDS ORDERED: CLON0.1T2 PO (12:24)
[2021-04-27] MEDS ORDERED: LEVE500T PO (12:24)
[2021-04-27] MEDS: normal saline 1000ml 1,000 ML IV SCH ×2 (12:34→21:15)
[2021-04-27] MEDS ORDERED: hydrOXYzine 25 MG tablet PO PRN (16:30)
[2021-04-27] MEDS ORDERED: fluticasone nasal spray 16GM bottle NS PRN (16:30)
[2021-04-27] MEDS ORDERED: non-formulary drug (Alendronate Sodium 1 TAB) PO SCH (16:30)
[2021-04-27] MEDS ORDERED: baclofen 10mg tablet PO PRN (16:30)
[2021-04-27] MEDS ORDERED: albuterol 2.5 MG/3 ML nebule NEB PRN (16:40)
[2021-04-27] MEDS ORDERED: ipratropium/albuterol 3ml nebule IH PRN (16:45)
[2021-04-27] MEDS: piperacillin/tazo 4.5gm/100ml 100 ML IV SCH (16:58)
[2021-04-27] MEDS: budesonide 0.5mg/2ml UD nebule IH SCH (20:16)
[2021-04-27] MEDS: gabapentin 300mg capsule PO SCH (20:40)
[2021-04-27] MEDS: docusate sod 100mg capsule PO SCH (20:41)
[2021-04-27] MEDS: carVEDilol 3.125mg tablet PO SCH (20:41)
[2021-04-27] MEDS: cloNIDine 0.1 mg tablet PO SCH (20:41)
[2021-04-27] MEDS: levetiracetam 250mg tablet PO SCH (20:41)
[2021-04-27] MEDS: enoxaparin 30mg/0.3ml syringe SQ SCH (20:42)
[2021-04-27] MEDS: HYDROcodone/acetaminophen 5mg/325mg tablet PO PRN (21:15)
[2021-04-27] MEDS: doxepin 25mg capsule PO SCH (21:16)
[2021-04-28] MEDS: piperacillin/tazo 4.5gm/100ml 100 ML IV SCH ×2 (01:50→11:44)
[2021-04-28] MEDS: ipratropium/albuterol 3ml nebule NEB SCH ×6 (02:45→23:31)
[2021-04-28 03:03] LABS: BASOPHILS % (AUTO) 0.2 % (0-1); EOSINOPHILS % (AUTO) 0 % (0-6); HEMATOCRIT 32.5 % (35.0-45.0); HEMOGLOBIN 10.4 g/dl (12.0-16.0); LYMPHOCYTES % (AUTO) 6.8 % (21-51); MEAN CORPUSCULAR HEMOGLOBIN 28.6 PG (27.0-31.0); MEAN CORPUSCULAR VOLUME 89.5 FL (78-98); MEAN PLATELET VOLUME 6.8 FL (7.4-10.4); MONOCYTES # (AUTO) 0.7 X10'3 (0-0.9); MONOCYTES % (AUTO) 4.6 % (2-12); NEUTROPHILS # (AUTO) 13.2 X10'3 (1.8-7.7); NEUTROPHILS % (AUTO) 88.4 % (42-75); PLATELET COUNT 318 X10'3 (140-440); RED BLOOD COUNT 3.64 X10'6 (4.20-5.60); RED CELL DISTRIBUTION WIDTH 18.4 % (11.5-14.5)
[2021-04-28 03:11] LABS: ALBUMIN 2.2 G/DL (3.4-5.0); ANION GAP 9 (8-16); BLOOD UREA NITROGEN 13 MG/DL (7-18); CALCIUM 7.5 MG/DL (8.5-10.1); CHLORIDE 110 MMOL/L (99-107); CREATININE 0.93 MG/DL (0.40-0.90); GLUCOSE 169 MG/DL (70-104); SODIUM 144 MMOL/L (135-145); TOTAL CARBON DIOXIDE 24.9 MMOL/L (24-32); eGFR 63 ML/MIN
[2021-04-28] MEDS: normal saline 1000ml 1,000 ML IV SCH ×2 (06:58→23:00)
[2021-04-28] MEDS: HYDROcodone/acetaminophen 5mg/325mg tablet PO PRN ×2 (07:04→20:36)
[2021-04-28] MEDS: budesonide 0.5mg/2ml UD nebule IH SCH ×2 (07:19→20:14)
--- NOTE | 2021-04-28 07:37 | NUR ---
Patient in room ED 11. I have received report from EMILY Barrera and had the opportunity to ask questions. Awaiting patient arrival on unit to assume patient care.
[2021-04-28] MEDS: cetirizine 10mg tablet PO SCH (08:00)
[2021-04-28] MEDS: enoxaparin 30mg/0.3ml syringe SQ SCH ×2 (08:40→19:33)
[2021-04-28] MEDS: montelukast 10mg tablet PO SCH (08:43)
[2021-04-28] MEDS: carVEDilol 3.125mg tablet PO SCH ×2 (08:43→20:00)
[2021-04-28] MEDS: gabapentin 300mg capsule PO SCH ×2 (08:43→20:32)
[2021-04-28] MEDS: pantoprazole 40mg Tablet.DR PO SCH (08:44)
[2021-04-28] MEDS: levetiracetam 250mg tablet PO SCH ×2 (08:44→19:33)
[2021-04-28] MEDS: atorvastatin 10mg tablet PO SCH ×2 (08:44→20:32)
[2021-04-28] MEDS: docusate sod 100mg capsule PO SCH ×2 (08:45→19:33)
[2021-04-28] MEDS: cloNIDine 0.1 mg tablet PO SCH ×2 (08:45→20:00)
[2021-04-28] MEDS ORDERED: pneumococcal 23-VAL P-sac vacc 25 mcg/0.5ml vial IMVAC ONE (11:05)
[2021-04-28 18:00] VITALS: BP 104/74
[2021-04-28 19:33] VITALS: BP 103/70
[2021-04-28] MEDS: doxepin 25mg capsule PO SCH (20:32)
[2021-04-28 22:00] VITALS: BP 104/55
[2021-04-29] MEDS: piperacillin/tazo 4.5gm/100ml 100 ML IV SCH ×3 (00:10→16:24)
[2021-04-29 02:00] VITALS: BP 101/65
[2021-04-29] MEDS: ipratropium/albuterol 3ml nebule NEB SCH ×6 (02:56→22:55)
[2021-04-29] MEDS ORDERED: LIDOcaine 2% 10ml TOPICAL JELLY (Urojet) TP ONE (04:30)
--- NOTE | 2021-04-29 04:35 | NUR ---
Pt bladder scanned due to not producing adequate urine output. Residual amt is [address] Hernández notified and ordered cather in. Order carried out. 16 Fr. with 10 ml balloon inserted, pt tolerated the procedure. 700 ml urine output obtained.
[2021-04-29] MEDS: normal saline 1000ml 1,000 ML IV SCH ×2 (05:15→12:40)
[2021-04-29 06:00] VITALS: BP 107/72
--- NOTE | 2021-04-29 06:11 | NUR ---
Patient in room PCU 3013. I have received report from EMILY Vaughn and had the opportunity to ask questions and assume patient care.
--- NOTE | 2021-04-29 06:20 | NUR ---
Problems reprioritized. Patient report given, questions answered & plan of care reviewed with EMILY Chopra.
[2021-04-29 06:45] LABS: BASOPHILS % (AUTO) 0.5 % (0-1); EOSINOPHILS # (AUTO) 0.2 X10'3 (0-0.9); EOSINOPHILS % (AUTO) 1.6 % (0-6); HEMATOCRIT 29.4 % (35.0-45.0); HEMOGLOBIN 9.8 g/dl (12.0-16.0); LYMPHOCYTES % (AUTO) 19.3 % (21-51); MEAN CORPUSCULAR HEMOGLOBIN 29.8 PG (27.0-31.0); MEAN CORPUSCULAR HGB CONC 33.3 g/dL (33.0-36.5); MEAN CORPUSCULAR VOLUME 89.5 FL (78-98); MEAN PLATELET VOLUME 6.8 FL (7.4-10.4); MONOCYTES # (AUTO) 0.7 X10'3 (0-0.9); MONOCYTES % (AUTO) 6.5 % (2-12); NEUTROPHILS # (AUTO) 7.5 X10'3 (1.8-7.7); NEUTROPHILS % (AUTO) 72.1 % (42-75); PLATELET COUNT 320 X10'3 (140-440); RED BLOOD COUNT 3.28 X10'6 (4.20-5.60); WHITE BLOOD COUNT 10.4 X10'3 (4.5-11.0)
[2021-04-29] MEDS: budesonide 0.5mg/2ml UD nebule IH SCH ×2 (07:18→19:11)
[2021-04-29 07:25] LABS: ALBUMIN 2.2 G/DL (3.4-5.0); ANION GAP 7 (8-16); BLOOD UREA NITROGEN 15 MG/DL (7-18); BUN/CREATININE RATIO 14.9 (6.6-38.0); CALCIUM 7.9 MG/DL (8.5-10.1); CHLORIDE 110 MMOL/L (99-107); CREATININE 1.01 MG/DL (0.40-0.90); GLUCOSE 86 MG/DL (70-104); POTASSIUM 3.8 MMOL/L (3.5-5.1); SODIUM 144 MMOL/L (135-145); TOTAL CARBON DIOXIDE 27.2 MMOL/L (24-32); eGFR 57 ML/MIN
[2021-04-29] MEDS: levetiracetam 250mg tablet PO SCH ×2 (08:59→20:53)
[2021-04-29] MEDS: docusate sod 100mg capsule PO SCH ×2 (08:59→20:50)
[2021-04-29] MEDS: carVEDilol 3.125mg tablet PO SCH ×2 (09:00→20:52)
[2021-04-29] MEDS: gabapentin 300mg capsule PO SCH ×2 (09:03→20:53)
[2021-04-29] MEDS: pantoprazole 40mg Tablet.DR PO SCH (09:05)
[2021-04-29] MEDS: montelukast 10mg tablet PO SCH (09:06)
[2021-04-29] MEDS: HYDROcodone/acetaminophen 5mg/325mg tablet PO PRN ×2 (09:10→16:26)
[2021-04-29] MEDS: cloNIDine 0.1 mg tablet PO SCH ×3 (09:10→20:52)
[2021-04-29] MEDS: cetirizine 10mg tablet PO SCH (09:11)
[2021-04-29] MEDS: enoxaparin 30mg/0.3ml syringe SQ SCH ×2 (09:17→20:54)
[2021-04-29 11:00] VITALS: BP 100/59
--- NOTE | 2021-04-29 13:39 | NUR ---
Paged PICC nurse re: IV access: Stephany V 2034B needs new IV, one attempt, heard you were coming up. Can you give her a try? Keysha [phone]
[2021-04-29 15:00] VITALS: BP 98/61
[2021-04-29 18:00] VITALS: BP 106/60
[2021-04-29] MEDS: doxepin 25mg capsule PO SCH (20:51)
[2021-04-29] MEDS: atorvastatin 10mg tablet PO SCH (20:52)
[2021-04-29] MEDS: lactobacillus rhamnosus 10,000 MMU CELLS/CAPSULE PO SCH (20:52)
--- NOTE | 2021-04-29 22:16 | NUR ---
Patient refused having 2100 vitals done.
[2021-04-30] MEDS: normal saline 1000ml 1,000 ML IV SCH ×2 (00:41→08:40)
[2021-04-30] MEDS: piperacillin/tazo 4.5gm/100ml 100 ML IV SCH ×2 (00:42→08:18)
[2021-04-30] MEDS: HYDROcodone/acetaminophen 5mg/325mg tablet PO PRN (00:42)
[2021-04-30 02:00] VITALS: BP 110/64
[2021-04-30] MEDS: ipratropium/albuterol 3ml nebule NEB SCH ×3 (02:51→10:53)
[2021-04-30 06:00] VITALS: BP 116/68
--- NOTE | 2021-04-30 06:18 | NUR ---
Problems reprioritized. Patient report given, questions answered & plan of care reviewed with EMILY Holliday.
[2021-04-30] MEDS: budesonide 0.5mg/2ml UD nebule IH SCH (07:01)
[2021-04-30 07:04] LABS: BASOPHILS # (AUTO) 0.1 X10'3 (0-0.2); BASOPHILS % (AUTO) 0.8 % (0-1); EOSINOPHILS # (AUTO) 0.4 X10'3 (0-0.9); EOSINOPHILS % (AUTO) 4.5 % (0-6); HEMATOCRIT 30.4 % (35.0-45.0); LYMPHOCYTES # (AUTO) 1.9 X10'3 (1.1-4.8); LYMPHOCYTES % (AUTO) 21.7 % (21-51); MEAN CORPUSCULAR HEMOGLOBIN 29.4 PG (27.0-31.0); MEAN CORPUSCULAR HGB CONC 32.9 g/dL (33.0-36.5); MEAN CORPUSCULAR VOLUME 89.3 FL (78-98); MEAN PLATELET VOLUME 6.9 FL (7.4-10.4); MONOCYTES # (AUTO) 0.7 X10'3 (0-0.9); MONOCYTES % (AUTO) 7.7 % (2-12); NEUTROPHILS # (AUTO) 5.6 X10'3 (1.8-7.7); NEUTROPHILS % (AUTO) 65.3 % (42-75); PLATELET COUNT 352 X10'3 (140-440); WHITE BLOOD COUNT 8.6 X10'3 (4.5-11.0)
[2021-04-30 07:10] LABS: ALBUMIN 2.3 G/DL (3.4-5.0); ANION GAP 7 (8-16); BLOOD UREA NITROGEN 12 MG/DL (7-18); BUN/CREATININE RATIO 11.4 (6.6-38.0); CALCIUM 8.3 MG/DL (8.5-10.1); CHLORIDE 110 MMOL/L (99-107); CREATININE 1.05 MG/DL (0.40-0.90); GLUCOSE 78 MG/DL (70-104); POTASSIUM 4.1 MMOL/L (3.5-5.1); SODIUM 145 MMOL/L (135-145); TOTAL CARBON DIOXIDE 28.2 MMOL/L (24-32); eGFR 55 ML/MIN
[2021-04-30] MEDS: enoxaparin 30mg/0.3ml syringe SQ SCH (08:17)
[2021-04-30] MEDS: montelukast 10mg tablet PO SCH (08:18)
[2021-04-30] MEDS: docusate sod 100mg capsule PO SCH (08:18)
[2021-04-30] MEDS: levetiracetam 250mg tablet PO SCH (08:18)
[2021-04-30] MEDS: gabapentin 300mg capsule PO SCH (08:18)
[2021-04-30] MEDS: pantoprazole 40mg Tablet.DR PO SCH (08:18)
[2021-04-30] MEDS: cloNIDine 0.1 mg tablet PO SCH (08:18)
[2021-04-30] MEDS: lactobacillus rhamnosus 10,000 MMU CELLS/CAPSULE PO SCH (08:18)
[2021-04-30] MEDS: carVEDilol 3.125mg tablet PO SCH (08:18)
[2021-04-30] MEDS: cetirizine 10mg tablet PO SCH (08:18)
[2021-04-30 11:00] VITALS: BP 101/73
[2021-04-30] MEDS ORDERED: AMOX-422 PO (12:21)
--- NOTE | 2021-04-30 13:30 | NUR ---
Patient stable for discharge. PIV removed with catheter intact. Tele monitor removed. Discharge instructions given and patient verbalized understanding. All belongings with patient. Patient transferred off floor via wheelchair to boyfriend's vehicle.
== END 2021-04-30 13:35 | disposition home health service (06) | DRG 720 ==
LOC: ER 08:12 → ED HOLD 10:42 → PCU 3S 04-28 10:30
PROVIDERS: ADMIT Family Medicine; ATTEND Family Medicine
PROC: 3E0234Z Introduction of Serum, Toxoid and Vaccine into Muscle, Percutaneous Approach (ICD-10-PCS; principal; 2021-04-28)
DX: A41.9 Sepsis, unspecified organism (principal); J96.01 Acute respiratory failure with hypoxia; J69.0 Pneumonitis due to inhalation of food and vomit; J18.9 Pneumonia, unspecified organism; J45.901 Unspecified asthma with (acute) exacerbation; E78.5 Hyperlipidemia, unspecified; F31.9 Bipolar disorder, unspecified; G89.4 Chronic pain syndrome; M54.9 Dorsalgia, unspecified; K21.9 Gastro-esophageal reflux disease without esophagitis; M79.7 Fibromyalgia; M81.0 Age-related osteoporosis without current pathological fracture; Z20.822 Contact with and (suspected) exposure to COVID-19; Z90.710 Acquired absence of both cervix and uterus; Z23 Encounter for immunization; Z88.8 Allergy status to other drugs, medicaments and biological substances
CPT/HCPCS: 36415; 36600; 71045; 80048; 80053; 82803; 83605; 83880; 85018; 85025; 85379; 87040; 87081; 87635; 90732; 93005; 94640; 94760; 96361; 96374; 97110; 97116; 97161; 97530; 99291; C9803; G0378; J0456; J0696; J1650; J2405; J2543; J2930; J7030; J7626

== ENCOUNTER 2021-05-27 10:36 | Emergency (ER) | payer MEDICAID ==
[~2021-05-27] VITALS: Ht 147.3 cm; Wt 81.0 kg
[~2021-05-27 10:36] MED LIST changes: +AMOX-422 PO; +CARV3.122 PO; +CLON0.1T2 PO; -HYDR-3965 PO; +LEVE500T PO; -MECL-159 PO; -NABU-141 PO; -OFLO5DRO5 TOP; -TRIA15CR61 TOP
[2021-05-27 12:12] LABS: BASOPHILS % (AUTO) 0.9 % (0-1); EOSINOPHILS % (AUTO) 0 % (0-6); HEMATOCRIT 41.2 % (35.0-45.0); HEMOGLOBIN 13.5 g/dl (12.0-16.0); LYMPHOCYTES # (AUTO) 1.7 X10'3 (1.1-4.8); LYMPHOCYTES % (AUTO) 19.7 % (21-51); MEAN CORPUSCULAR HEMOGLOBIN 29.8 PG (27.0-31.0); MEAN CORPUSCULAR HGB CONC 32.9 g/dL (33.0-36.5); MEAN CORPUSCULAR VOLUME 90.7 FL (78-98); MEAN PLATELET VOLUME 7.4 FL (7.4-10.4); MONOCYTES # (AUTO) 0.7 X10'3 (0-0.9); MONOCYTES % (AUTO) 7.6 % (2-12); NEUTROPHILS # (AUTO) 6.4 X10'3 (1.8-7.7); NEUTROPHILS % (AUTO) 71.8 % (42-75); PLATELET COUNT 449 X10'3 (140-440); RED BLOOD COUNT 4.54 X10'6 (4.20-5.60); RED CELL DISTRIBUTION WIDTH 15.7 % (11.5-14.5); WHITE BLOOD COUNT 8.8 X10'3 (4.5-11.0)
[2021-05-27 13:31] LABS: ALANINE AMINOTRANSFERASE 23 U/L (12-78); ALBUMIN 3.4 G/DL (3.4-5.0); ALBUMIN/GLOBULIN RATIO 0.8 (1.1-1.5); ALKALINE PHOSPHATASE 91 IU/L (46-116); ANION GAP 10 (8-16); ASPARTATE AMINO TRANSFERASE 13 U/L (10-37); BILIRUBIN,TOTAL 0.4 MG/DL (0.1-1.0); BLOOD UREA NITROGEN 12 MG/DL (7-18); BUN/CREATININE RATIO 12.2 (6.6-38.0); CALCIUM 9.6 MG/DL (8.5-10.1); CHLORIDE 104 MMOL/L (99-107); CREATININE 0.98 MG/DL (0.40-0.90); ETHANOL < 0.010 GM/DL (0.0-0.010); GLUCOSE 114 MG/DL (70-104); LIPASE < 50 U/L (73-393); POTASSIUM 4.1 MMOL/L (3.5-5.1); SODIUM 138 MMOL/L (135-145); TOTAL CARBON DIOXIDE 23.6 MMOL/L (24-32); TOTAL PROTEIN 7.6 G/DL (6.4-8.2); eGFR 59 ML/MIN
[2021-05-27 14:51] LABS: CLARITY,URINE CLEAR (Clear); COLOR,URINE STRAW (Yellow); PROTEIN,URINE NEGATIVE (Neg); UA COLLECTION TYPE VOIDED
[2021-05-27 14:52] LABS: GLUCOSE, URINE NEGATIVE (Neg); KETONES,URINE NEGATIVE (Neg); LEUKOCYTE ESTERASE ,URINE NEGATIVE (Neg); NITRITES, URINE NEGATIVE (Neg); OCCULT BLOOD,URINE NEGATIVE (Neg); URINE AMPHETAMINE SCREEN NEGATIVE (Neg); URINE BARBITUATE SCREEN NEGATIVE (Neg); URINE BENZODIAZEPINES SCREEN NEGATIVE (Neg); URINE CANNABINOID SCREEN NEGATIVE (Neg); URINE COCAINE SCREEN NEGATIVE (Neg); URINE METHADONE SCREEN NEGATIVE (Neg); URINE OPIATE SCREEN NEGATIVE (Neg); URINE PHENCYCLIDINE SCREEN NEGATIVE (Neg); UROBILINOGEN,URINE 0.2 E.U/dL (0.2-1.0)
[2021-05-27 15:25] VITALS: BP 146/84
== END 2021-05-27 15:26 | disposition home or self-care (01) ==
LOC: ER 10:36
DX: R10.10 Upper abdominal pain, unspecified (principal); J45.909 Unspecified asthma, uncomplicated; K21.9 Gastro-esophageal reflux disease without esophagitis; G89.29 Other chronic pain; M81.0 Age-related osteoporosis without current pathological fracture; M79.7 Fibromyalgia; Z87.81 Personal history of (healed) traumatic fracture; Z90.710 Acquired absence of both cervix and uterus; Z88.8 Allergy status to other drugs, medicaments and biological substances; Z79.899 Other long term (current) drug therapy
CPT/HCPCS: 36415; 80053; 80305; 80320; 81003; 83690; 85025; 99283

== ENCOUNTER 2021-06-21 08:49 | Outpatient (CLI) | payer MEDICAID ==
[~2021-06-21 08:49] MED LIST changes: -AMOX-422 PO; +MONT-40 PO; -MONT10TA32 PO
== END 2021-06-21 23:59 | disposition home or self-care (01) ==
LOC: RAD 08:49
PROVIDERS: ATTEND Psychiatry & Neurology Neurology
DX: R56.9 Unspecified convulsions (principal); Z79.899 Other long term (current) drug therapy
CPT/HCPCS: 95819

== ENCOUNTER 2021-06-24 08:42 | Outpatient (CLI) | payer MEDICAID | END 2021-06-24 23:59 | disposition home or self-care (01) | LOC: RAD 08:42 | DX: F31.9 Bipolar disorder, unspecified (principal); F43.10 Post-traumatic stress disorder, unspecified; Z79.899 Other long term (current) drug therapy | CPT/HCPCS: 93005 ==

== ENCOUNTER 2021-08-03 07:37 | Emergency (ER) | payer MEDICAID ==
[~2021-08-03] VITALS: Ht 142.2 cm; Wt 76.5 kg
[~2021-08-03 07:37] MED LIST changes: -FLUT15.87 INH; +FLUT15.87 NS
--- NOTE | 2021-08-03 09:20 | NUR ---
pt reports dzziness, vertigo, difficulty walking reports this has happened to her before and "they gave me medicine" pt denies have meds to take at home
[2021-08-03 10:10] LABS: BASOPHILS # (AUTO) 0.1 X10'3 (0-0.2); EOSINOPHILS # (AUTO) 0.1 X10'3 (0-0.9); HEMOGLOBIN 13.1 g/dl (12.0-16.0); MEAN CORPUSCULAR HEMOGLOBIN 29.3 PG (27.0-31.0); MEAN CORPUSCULAR HGB CONC 32.8 g/dL (33.0-36.5); MONOCYTES # (AUTO) 0.7 X10'3 (0-0.9)
[2021-08-03 10:12] LABS: BASOPHILS % (AUTO) 0.8 % (0-1); EOSINOPHILS % (AUTO) 1.2 % (0-6); LYMPHOCYTES # (AUTO) 1.6 X10'3 (1.1-4.8); LYMPHOCYTES % (AUTO) 23.5 % (21-51); MEAN CORPUSCULAR VOLUME 89.5 FL (78-98); MONOCYTES % (AUTO) 9.8 % (2-12); NEUTROPHILS # (AUTO) 4.5 X10'3 (1.8-7.7); NEUTROPHILS % (AUTO) 64.7 % (42-75); PLATELET COUNT 364 X10'3 (140-440); RED BLOOD COUNT 4.47 X10'6 (4.20-5.60); RED CELL DISTRIBUTION WIDTH 14.3 % (11.5-14.5)
[2021-08-03 10:23] LABS: ALANINE AMINOTRANSFERASE 20 U/L (12-78); ALBUMIN 3.5 G/DL (3.4-5.0); ALBUMIN/GLOBULIN RATIO 0.9 (1.1-1.5); ALKALINE PHOSPHATASE 87 IU/L (46-116); ANION GAP 9 (8-16); BILIRUBIN,TOTAL 0.4 MG/DL (0.1-1.0); BLOOD UREA NITROGEN 7 MG/DL (7-18); BUN/CREATININE RATIO 7.9 (6.6-38.0); CALCIUM 9.3 MG/DL (8.5-10.1); CHLORIDE 105 MMOL/L (99-107); CREATININE 0.89 MG/DL (0.40-0.90); GLUCOSE 113 MG/DL (70-104); SODIUM 144 MMOL/L (135-145); TOTAL CARBON DIOXIDE 29.9 MMOL/L (24-32); TOTAL PROTEIN 7.4 G/DL (6.4-8.2); eGFR 66 ML/MIN
[2021-08-03 10:26] LABS: ASPARTATE AMINO TRANSFERASE 26 U/L (10-37)
[2021-08-03] MEDS ORDERED: meclizine 12.5mg tablet PO ONE (12:20)
[2021-08-03] MEDS ORDERED: MECL-226 PO (14:38)
[2021-08-03 15:42] VITALS: BP 104/80
== END 2021-08-03 15:44 | disposition home or self-care (01) ==
LOC: ER 07:38
DX: R42 Dizziness and giddiness (principal); R05.9 Cough, unspecified; R51.9 Headache, unspecified; J45.909 Unspecified asthma, uncomplicated; K21.9 Gastro-esophageal reflux disease without esophagitis; G89.29 Other chronic pain; F31.9 Bipolar disorder, unspecified; F17.200 Nicotine dependence, unspecified, uncomplicated; Z90.710 Acquired absence of both cervix and uterus; Z88.8 Allergy status to other drugs, medicaments and biological substances; Z79.899 Other long term (current) drug therapy
CPT/HCPCS: 36415; 70450; 80053; 84484; 85025; 93005; 99285; J8597

== ENCOUNTER 2021-08-05 11:41 | Inpatient (IN) | payer MEDICAID ==
[~2021-08-05] VITALS: Ht 162.6 cm; Wt 69.1 kg
[~2021-08-05 11:41] MED LIST changes: +MECL-226 PO
[2021-08-05] MEDS ORDERED: normal saline 1000ML IV soln IVB ONE (11:55)
[2021-08-05 12:46] LABS: BASOPHILS # (AUTO) 0.1 X10'3 (0-0.2); BASOPHILS % (AUTO) 1.5 % (0-1); EOSINOPHILS # (AUTO) 0.1 X10'3 (0-0.9); EOSINOPHILS % (AUTO) 1.6 % (0-6); HEMATOCRIT 38.9 % (35.0-45.0); HEMOGLOBIN 12.8 g/dl (12.0-16.0); LYMPHOCYTES % (AUTO) 22.5 % (21-51); MEAN CORPUSCULAR HEMOGLOBIN 29.5 PG (27.0-31.0); MEAN CORPUSCULAR VOLUME 89.5 FL (78-98); MEAN PLATELET VOLUME 7.2 FL (7.4-10.4); MONOCYTES # (AUTO) 0.9 X10'3 (0-0.9); MONOCYTES % (AUTO) 9.7 % (2-12); NEUTROPHILS # (AUTO) 5.8 X10'3 (1.8-7.7); NEUTROPHILS % (AUTO) 64.7 % (42-75); PLATELET COUNT 382 X10'3 (140-440); RED BLOOD COUNT 4.35 X10'6 (4.20-5.60); RED CELL DISTRIBUTION WIDTH 13.9 % (11.5-14.5); WHITE BLOOD COUNT 8.9 X10'3 (4.5-11.0)
[2021-08-05 12:58] LABS: ALANINE AMINOTRANSFERASE 33 U/L (12-78); ALBUMIN 3.5 G/DL (3.4-5.0); ALBUMIN/GLOBULIN RATIO 0.9 (1.1-1.5); ALKALINE PHOSPHATASE 85 IU/L (46-116); ANION GAP 8 (8-16); ASPARTATE AMINO TRANSFERASE 18 U/L (10-37); BILIRUBIN,TOTAL 0.4 MG/DL (0.1-1.0); BLOOD UREA NITROGEN 6 MG/DL (7-18); BUN/CREATININE RATIO 5.5 (6.6-38.0); CALCIUM 9.2 MG/DL (8.5-10.1); CHLORIDE 104 MMOL/L (99-107); CREATININE 1.09 MG/DL (0.40-0.90); GLUCOSE 100 MG/DL (70-104); POTASSIUM 3.7 MMOL/L (3.5-5.1); SODIUM 142 MMOL/L (135-145); TOTAL CARBON DIOXIDE 30.1 MMOL/L (24-32); TOTAL PROTEIN 7.3 G/DL (6.4-8.2); eGFR 53 ML/MIN
[2021-08-05 13:01] LABS: ETHANOL < 0.010 GM/DL (0.0-0.010)
[2021-08-05 13:04] LABS: ACETAMINOPHEN < 2.0 UG/ML (10-30)
[2021-08-05] MEDS ORDERED: potassium Cl 20 mEq SR tablet PO PRN ×2 (13:30)
[2021-08-05] MEDS ORDERED: magnesium hydroxide 30ml (MOM) UD suspension PO PRN (13:30)
[2021-08-05] MEDS ORDERED: HYDROcodone/acetaminophen 10/325mg tab PO PRN (13:30)
[2021-08-05] MEDS ORDERED: ondansetron/PF 4mg/2ml inj IV PRN (13:30)
[2021-08-05] MEDS ORDERED: potassium CL 10mEq/100ml bag 100 ML IV PRN (13:30)
[2021-08-05] MEDS ORDERED: HYDROcodone/acetaminophen 5mg/325mg tablet PO PRN (13:30)
[2021-08-05] MEDS ORDERED: magnesium 2GM in 50ml NS 50 ML IV PRN (13:30)
[2021-08-05] MEDS: atorvastatin 20mg tablet PO SCH (13:30)
[2021-08-05] MEDS ORDERED: aspirin 325mg tablet, delayed-release (Ecotrin) PO ONE (13:30)
[2021-08-05] MEDS ORDERED: acetaminophen 325mg tablet PO PRN ×2 (13:30)
[2021-08-05] MEDS ORDERED: mag hydrox/Alum hydrox/simeth 30ml oral suspension PO PRN (13:30)
[2021-08-05] MEDS ORDERED: magnesium 4gm in 100ml NS 100 ML IV PRN (13:30)
[2021-08-05] MEDS ORDERED: iohexol 350MG/ML 100ml bottle IV ONE (13:34)
[2021-08-05] MEDS ORDERED: FOLI0.4T6 PO (13:58)
[2021-08-05] MEDS ORDERED: LAMO100T PO (13:58)
[2021-08-05] MEDS ORDERED: VALB80CA PO (13:58)
[2021-08-05] MEDS ORDERED: FERR325T29 PO (13:58)
[2021-08-05] MEDS ORDERED: baclofen 10mg tablet PO PRN (14:15)
[2021-08-05] MEDS: albuterol 2.5 MG/3 ML nebule NEB SCH ×2 (14:25→19:44)
[2021-08-05] MEDS ORDERED: albuterol 2.5 MG/3 ML nebule NEB PRN (16:45)
--- NOTE | 2021-08-05 16:45 | NUR ---
Patient in room ED 6. I have received report from Marco ED RN and had the opportunity to ask questions and assume patient care.
[2021-08-05 17:45] VITALS: BP 143/74
[2021-08-05 18:00] VITALS: BP 132/88
--- NOTE | 2021-08-05 18:37 | NUR ---
Problems reprioritized. Patient report given, questions answered & plan of care reviewed with David DIAZ [].
[2021-08-05] MEDS: budesonide 0.5mg/2ml UD nebule IH SCH (19:44)
[2021-08-05] MEDS: K and/or MAG REPLACEMENT MC SCH (19:59)
[2021-08-05 20:00] VITALS: BP 137/84
[2021-08-05 20:05] VITALS: BP 133/76
[2021-08-05] MEDS: ferrous sulfate 325mg tablet PO SCH (20:33)
[2021-08-05] MEDS: lamoTRIgine 100mg tablet PO SCH (20:34)
[2021-08-05] MEDS: docusate sod 100mg capsule PO SCH (20:34)
[2021-08-05] MEDS: levetiracetam 250mg tablet PO SCH (20:34)
[2021-08-05] MEDS: gabapentin 300mg capsule PO SCH (20:34)
[2021-08-05] MEDS: enoxaparin 40mg/0.4ml syringe SQ SCH (20:35)
[2021-08-05 22:00] VITALS: BP 128/72
[2021-08-06] VITALS (8 sets, daily range): BP systolic 101–131; BP diastolic 65–81
[2021-08-06] MEDS: albuterol 2.5 MG/3 ML nebule NEB SCH ×4 (03:07→20:15)
--- NOTE | 2021-08-06 06:31 | NUR ---
Patient in room PCU 3017. I have received report from David DIAZ and had the opportunity to ask questions and assume patient care.
[2021-08-06 07:23] LABS: BASOPHILS # (AUTO) 0.1 X10'3 (0-0.2); BASOPHILS % (AUTO) 1.8 % (0-1); EOSINOPHILS # (AUTO) 0.2 X10'3 (0-0.9); EOSINOPHILS % (AUTO) 2.9 % (0-6); HEMATOCRIT 37.6 % (35.0-45.0); HEMOGLOBIN 12.3 g/dl (12.0-16.0); LYMPHOCYTES # (AUTO) 2.2 X10'3 (1.1-4.8); LYMPHOCYTES % (AUTO) 31.8 % (21-51); MEAN CORPUSCULAR HEMOGLOBIN 29.4 PG (27.0-31.0); MEAN CORPUSCULAR HGB CONC 32.8 g/dL (33.0-36.5); MEAN CORPUSCULAR VOLUME 89.6 FL (78-98); MEAN PLATELET VOLUME 7.1 FL (7.4-10.4); MONOCYTES # (AUTO) 0.9 X10'3 (0-0.9); MONOCYTES % (AUTO) 12.7 % (2-12); NEUTROPHILS # (AUTO) 3.5 X10'3 (1.8-7.7); NEUTROPHILS % (AUTO) 50.8 % (42-75); PLATELET COUNT 367 X10'3 (140-440); RED BLOOD COUNT 4.19 X10'6 (4.20-5.60); RED CELL DISTRIBUTION WIDTH 14.2 % (11.5-14.5)
[2021-08-06 07:51] LABS: ALANINE AMINOTRANSFERASE 27 U/L (12-78); ALBUMIN 3.1 G/DL (3.4-5.0); ALBUMIN/GLOBULIN RATIO 0.9 (1.1-1.5); ALKALINE PHOSPHATASE 81 IU/L (46-116); ANION GAP 11 (8-16); ASPARTATE AMINO TRANSFERASE 15 U/L (10-37); BILIRUBIN,TOTAL 0.4 MG/DL (0.1-1.0); BLOOD UREA NITROGEN 6 MG/DL (7-18); BUN/CREATININE RATIO 6.3 (6.6-38.0); CALCIUM 8.8 MG/DL (8.5-10.1); CHLORIDE 104 MMOL/L (99-107); CHOL/HDL RATIO 3.4 (0.00-4.99); CHOLESTEROL 196 MG/DL (0-200); CREATININE 0.95 MG/DL (0.40-0.90); GLUCOSE 93 MG/DL (70-104); HDL CHOLESTEROL 58 MG/DL (35-60); LDL CHOLESTEROL 101 MG/DL (50-100); MAGNESIUM 1.8 MG/DL (1.5-2.4); POTASSIUM 3.7 MMOL/L (3.5-5.1); SODIUM 142 MMOL/L (135-145); TOTAL CARBON DIOXIDE 26.6 MMOL/L (24-32); TOTAL PROTEIN 6.6 G/DL (6.4-8.2); TRIGLYCERIDES 100 MG/DL (20-135); eGFR 62 ML/MIN
[2021-08-06] MEDS: budesonide 0.5mg/2ml UD nebule IH SCH ×2 (08:00→20:15)
[2021-08-06] MEDS: K and/or MAG REPLACEMENT MC SCH ×2 (08:00→20:00)
[2021-08-06] MEDS: Valbenazine Tosylate (Ingrezza) 80 MG PO SCH (08:00)
[2021-08-06] MEDS: enoxaparin 40mg/0.4ml syringe SQ SCH ×2 (08:53→21:09)
[2021-08-06] MEDS: atorvastatin 20mg tablet PO SCH (08:53)
[2021-08-06] MEDS: levetiracetam 250mg tablet PO SCH ×2 (08:53→21:09)
[2021-08-06] MEDS: lamoTRIgine 100mg tablet PO SCH ×2 (08:53→21:09)
[2021-08-06] MEDS: gabapentin 300mg capsule PO SCH ×2 (08:54→21:08)
[2021-08-06] MEDS: cetirizine 10mg tablet PO SCH (08:54)
[2021-08-06] MEDS: aspirin 81mg tab.chew PO SCH (08:54)
[2021-08-06] MEDS: folic acid 1mg tablet PO SCH (08:54)
[2021-08-06] MEDS: docusate sod 100mg capsule PO SCH ×2 (08:55→21:09)
[2021-08-06] MEDS: pantoprazole 40mg Tablet.DR PO SCH (08:55)
[2021-08-06] MEDS: ferrous sulfate 325mg tablet PO SCH ×2 (08:55→21:09)
[2021-08-06] MEDS: montelukast 10mg tablet PO SCH (09:00)
--- NOTE | 2021-08-06 14:40 | NUR ---
Attempted to ambulate patient, pt unable to stand on own. two persons attempted to stand her at bedside however patient legs are giving way, Dr Holder in room and observing patients actions. Pt was placed back in bed, call light in reach, will continue to monitor for muscle strength improvement.
--- NOTE | 2021-08-06 18:54 | NUR ---
Problems reprioritized. Patient report given, questions answered & plan of care reviewed with Tolu DIAZ[].
[2021-08-07 02:30] VITALS: BP 111/82
[2021-08-07] MEDS: albuterol 2.5 MG/3 ML nebule NEB SCH ×2 (02:52→07:19)
[2021-08-07 07:05] VITALS: BP 101/70
--- NOTE | 2021-08-07 07:05 | NUR ---
Patient in room PCU 3017. I have received report from Tolu DIAZ and had the opportunity to ask questions and assume patient care.
[2021-08-07] MEDS: budesonide 0.5mg/2ml UD nebule IH SCH (07:19)
[2021-08-07 07:32] LABS: BASOPHILS # (AUTO) 0.1 X10'3 (0-0.2); BASOPHILS % (AUTO) 1.1 % (0-1); EOSINOPHILS # (AUTO) 0.2 X10'3 (0-0.9); EOSINOPHILS % (AUTO) 2.5 % (0-6); HEMATOCRIT 37.3 % (35.0-45.0); HEMOGLOBIN 12.3 g/dl (12.0-16.0); LYMPHOCYTES # (AUTO) 2.1 X10'3 (1.1-4.8); LYMPHOCYTES % (AUTO) 31.2 % (21-51); MEAN CORPUSCULAR HEMOGLOBIN 29.5 PG (27.0-31.0); MEAN CORPUSCULAR VOLUME 89.2 FL (78-98); MEAN PLATELET VOLUME 7.2 FL (7.4-10.4); MONOCYTES # (AUTO) 0.7 X10'3 (0-0.9); MONOCYTES % (AUTO) 11.1 % (2-12); NEUTROPHILS # (AUTO) 3.6 X10'3 (1.8-7.7); NEUTROPHILS % (AUTO) 54.1 % (42-75); PLATELET COUNT 366 X10'3 (140-440); RED BLOOD COUNT 4.18 X10'6 (4.20-5.60); RED CELL DISTRIBUTION WIDTH 14.1 % (11.5-14.5); WHITE BLOOD COUNT 6.7 X10'3 (4.5-11.0)
[2021-08-07 07:56] LABS: ALANINE AMINOTRANSFERASE 20 U/L (12-78); ALBUMIN 3.1 G/DL (3.4-5.0); ALBUMIN/GLOBULIN RATIO 0.8 (1.1-1.5); ALKALINE PHOSPHATASE 82 IU/L (46-116); ANION GAP 11 (8-16); ASPARTATE AMINO TRANSFERASE 13 U/L (10-37); BILIRUBIN,TOTAL 0.5 MG/DL (0.1-1.0); BLOOD UREA NITROGEN 4 MG/DL (7-18); BUN/CREATININE RATIO 4.5 (6.6-38.0); CALCIUM 8.8 MG/DL (8.5-10.1); CHLORIDE 105 MMOL/L (99-107); CREATININE 0.89 MG/DL (0.40-0.90); GLUCOSE 111 MG/DL (70-104); POTASSIUM 3.9 MMOL/L (3.5-5.1); SODIUM 142 MMOL/L (135-145); TOTAL CARBON DIOXIDE 26.2 MMOL/L (24-32); TOTAL PROTEIN 6.8 G/DL (6.4-8.2); eGFR 66 ML/MIN
[2021-08-07] MEDS: K and/or MAG REPLACEMENT MC SCH (08:00)
[2021-08-07] MEDS: Valbenazine Tosylate (Ingrezza) 80 MG PO SCH (08:00)
[2021-08-07] MEDS ORDERED: atorvastatin 20mg tablet PO SCH (08:00)
[2021-08-07] MEDS: aspirin 81mg tab.chew PO SCH (08:31)
[2021-08-07] MEDS: folic acid 1mg tablet PO SCH (08:31)
[2021-08-07] MEDS: docusate sod 100mg capsule PO SCH (08:32)
[2021-08-07] MEDS: lamoTRIgine 100mg tablet PO SCH (08:32)
[2021-08-07] MEDS: cetirizine 10mg tablet PO SCH (08:32)
[2021-08-07] MEDS: gabapentin 300mg capsule PO SCH (08:32)
[2021-08-07] MEDS: montelukast 10mg tablet PO SCH (08:32)
[2021-08-07] MEDS: levetiracetam 250mg tablet PO SCH (08:32)
[2021-08-07] MEDS: pantoprazole 40mg Tablet.DR PO SCH (08:33)
[2021-08-07] MEDS: ferrous sulfate 325mg tablet PO SCH (08:33)
[2021-08-07 11:00] VITALS: BP 112/71
[2021-08-07] MEDS ORDERED: SIMV-45 PO (11:16)
--- NOTE | 2021-08-07 13:41 | NUR ---
Pt has discharge orders, discharge instructions given, tele and IV removed with canula intact. Pt in no distress and is looking forward to going home
--- NOTE | 2021-08-07 14:26 | NUR ---
Pt left via wheelchair, no distress noted, transported home by boyfriend, pt wearing belongings, phone and wallet in bag.
== END 2021-08-07 14:25 | disposition home or self-care (01) | DRG 52 ==
LOC: ER 11:42 → ED HOLD 13:35 → EDBEDREQ 15:56 → PCU 3S 16:55
PROVIDERS: ADMIT Family Medicine; ATTEND Family Medicine
PROC: B3251ZZ Computerized Tomography (CT Scan) of Bilateral Common Carotid Arteries using Low Osmolar Contrast (ICD-10-PCS; principal; 2021-08-05)
PROC: B32G1ZZ Computerized Tomography (CT Scan) of Bilateral Vertebral Arteries using Low Osmolar Contrast (ICD-10-PCS; 2021-08-05)
PROC: B32R1ZZ Computerized Tomography (CT Scan) of Intracranial Arteries using Low Osmolar Contrast (ICD-10-PCS; 2021-08-05)
PROC: B3281ZZ Computerized Tomography (CT Scan) of Bilateral Internal Carotid Arteries using Low Osmolar Contrast (ICD-10-PCS; 2021-08-05)
DX: G92.8 Other toxic encephalopathy (principal); J44.1 Chronic obstructive pulmonary disease with (acute) exacerbation; E78.5 Hyperlipidemia, unspecified; F31.9 Bipolar disorder, unspecified; M48.05 Spinal stenosis, thoracolumbar region; G40.909 Epilepsy, unspecified, not intractable, without status epilepticus; K21.9 Gastro-esophageal reflux disease without esophagitis; M54.9 Dorsalgia, unspecified; R47.1 Dysarthria and anarthria; T43.015A Adverse effect of tricyclic antidepressants, initial encounter; T43.595A Adverse effect of other antipsychotics and neuroleptics, initial encounter; W18.2XXA Fall in (into) shower or empty bathtub, initial encounter; R55 Syncope and collapse; G89.4 Chronic pain syndrome; M79.7 Fibromyalgia; M81.0 Age-related osteoporosis without current pathological fracture; Y93.E1 Activity, personal bathing and showering; Z90.710 Acquired absence of both cervix and uterus; Z88.8 Allergy status to other drugs, medicaments and biological substances; Z79.899 Other long term (current) drug therapy; Y92.89 Other specified places as the place of occurrence of the external cause
CPT/HCPCS: 36415; 70450; 70496; 70498; 70551; 71045; 72125; 72141; 72146; 72148; 73610; 80053; 80061; 80320; 80329; 82948; 83735; 85025; 87081; 93005; 94640; 94760; 96360; 97110; 97116; 97161; 97530; 99285; G0378; J1650; J7030; Q9967